=== PATIENT | male | born 1965 | race Caucasian/White ===

== ENCOUNTER → 2016-12-22 | Outpatient (CLI) | payer OTHER ==
[~2016-12-22] MED LIST: ALBUAER19 INH; ASPI81TA21 PO; FURO40TA3 PO; INSU1INJ15 SQ; INSUINJ14 SC; LISI-725 PO; LORA-741 PO; META-38 PO; MULTTAB PO; NRN/300 PO; PRAV20TA PO; WLC625 PO
[2016-12-22 18:17] LABS: BASO % 0.2 %; BASO ABS # 0.02 K/uL (0-0.2); COMPLETE YES; EOS % 1.9 %; HEMATOCRIT 36.2 % (42-52); IG% 0.2 %; LYMPH % 20.8 %; LYMPH ABS # 1.82 K/uL (1.2-3.4); MEAN CELL VOLUME 90.3 fL (80-100); MEAN CORPUSCULAR HEMOGLOBIN 28.4 pg (25-34); MEAN CORPUSCULAR HGB CONC 31.5 g/dl (32-36); MEAN PLATELET VOLUME 9.8 fL (7.4-10.4); MONO % 4.2 %; NEUT % 72.7 %; PLATELET COUNT 252 K/uL (130-400); RED BLOOD COUNT 4.01 M/uL (4.7-6.1); WHITE BLOOD COUNT 8.76 K/uL (4.8-10.8)
[2016-12-22 18:49] LABS: ALT/SGPT 23 U/L (12-78); AST/SGOT 16 U/L (15-37); BLOOD UREA NITROGEN 13 mg/dl (7-18); BUN/CREATININE RATIO 14.4 (10-20); CALCIUM 8.2 mg/dl (8.5-10.1); CARBON DIOXIDE 30 mmol/L (21-32); CHLORIDE 102 mmol/L (98-107); CHOLESTEROL 144 mg/dl (0-200); CREATININE 0.89 mg/dl (0.60-1.40); GLUCOSE 122 mg/dl (70-99); POTASSIUM 3.8 mmol/L (3.5-5.1); SODIUM 139 mmol/L (136-145)
[2016-12-22 18:55] LABS: ALB/GLOB RATIO 0.8 (0.9-2); ALKALINE PHOSPHATASE 85 U/L (45-117); CHOLESTEROL/HDL RATIO 3.5; HDL CHOLESTEROL 41 mg/dl; LDL CHOLESTEROL CALCULATED 87 mg/dl; PROSTATE SPECIFIC ANTIGEN 0.051 ng/ml (0.000-4.000); TRIGLYCERIDES 80 mg/dl (0-150); VERY LOW DENSITY LIPOPROT CALC 16 mg/dl
[2016-12-23 06:32] LABS: ESTIMATED AVERAGE GLUCOSE 203 mg/dl; HA1C FLAG Normal (Normal)
== END | disposition home or self-care (01) ==
LOC: C.LABSPEC 17:48
PROVIDERS: ATTEND Family Medicine
DX: E11.9 Type 2 diabetes mellitus without complications (principal); I10 Essential (primary) hypertension; E78.2 Mixed hyperlipidemia; Z12.5 Encounter for screening for malignant neoplasm of prostate

== ENCOUNTER → 2017-06-23 | Outpatient (CLI) | payer OTHER ==
[~2017-06-23] MED LIST changes: +ASPI-319 PO; -ASPI81TA21 PO; +BCTROWC EXT; +CEPH500C2 PO; +DICL1GEL34 TOP; +DOXY-300 PO; +INSDGI SQ; +MORP1TAB12 PO; +MORP1TAB14 PO; +NVLG SQ; +OXYC-57 PO; +SULF800T23 PO; +VLT50 PO
[2017-06-23 18:43] LABS: BASO % 0.1 %; BASO ABS # 0.01 K/uL (0-0.2); EOS % 2.4 %; EOS ABS # 0.21 K/uL (0-0.5); HEMATOCRIT 37.8 % (42-52); HEMOGLOBIN 12.2 g/dL (14.0-18.0); IG# 0.02 K/uL (0.00-0.02); LYMPH % 25.6 %; LYMPH ABS # 2.26 K/uL (1.2-3.4); MEAN CELL VOLUME 89.6 fL (80-100); MEAN CORPUSCULAR HEMOGLOBIN 28.9 pg (25-34); MEAN CORPUSCULAR HGB CONC 32.3 g/dl (32-36); MEAN PLATELET VOLUME 9.5 fL (7.4-10.4); MONO % 4.8 %; MONO ABS # 0.42 K/uL (0.11-0.59); NEUT % 66.9 %; PLATELET COUNT 253 K/uL (130-400); RED CELL DISTRIBUTION WIDTH CV 13.1 % (11.5-14.5); RED CELL DISTRIBUTION WIDTH SD 42.1 fL (36.4-46.3); WHITE BLOOD COUNT 8.82 K/uL (4.8-10.8)
[2017-06-24 08:07] LABS: HEMOGLOBIN A1C 7.5 % (4.5-5.6)
== END | disposition home or self-care (01) ==
LOC: C.LABSPEC 12:55
PROVIDERS: ATTEND Family Medicine
DX: E11.9 Type 2 diabetes mellitus without complications (principal)

== ENCOUNTER → 2017-08-17 | Outpatient (CLI) | payer OTHER ==
[~2017-08-17] MED LIST changes: -ASPI-319 PO; +ASPI81TA21 PO; -BCTROWC EXT; -CEPH500C2 PO; -DICL1GEL34 TOP; -DOXY-300 PO; -INSDGI SQ; -MORP1TAB12 PO; -MORP1TAB14 PO; -NVLG SQ; -OXYC-57 PO; -SULF800T23 PO; -VLT50 PO
[2017-08-17 19:08] LABS: ALBUMIN 3.2 gm/dl (3.4-5.0); ALT/SGPT 35 U/L (12-78); AST/SGOT 16 U/L (15-37); BLOOD UREA NITROGEN 15 mg/dl (7-18); CALCIUM 8.7 mg/dl (8.5-10.1); CARBON DIOXIDE 31 mmol/L (21-32); CREATININE 0.83 mg/dl (0.60-1.40); GLUCOSE 120 mg/dl (70-99); POTASSIUM 3.7 mmol/L (3.5-5.1); SODIUM 134 mmol/L (136-145)
[2017-08-17 19:11] LABS: ALKALINE PHOSPHATASE 92 U/L (45-117); CHOLESTEROL 150 mg/dl (0-200); LDL CHOLESTEROL CALCULATED 85 mg/dl; TOTAL PROTEIN 7.8 gm/dl (6.4-8.2)
== END | disposition home or self-care (01) ==
LOC: C.LABSPEC 18:30
PROVIDERS: ATTEND Family Medicine
DX: E11.9 Type 2 diabetes mellitus without complications (principal)

== ENCOUNTER 2017-09-14 12:46 | Emergency (ER) | payer OTHER ==
[~2017-09-14] VITALS: Ht 170.2 cm; Wt 147.5 kg
[2017-09-14 13:06] VITALS: TEMP 36.7; Ht 170.2 cm; Wt 147.5 kg
--- NOTE | 2017-09-14 13:31 | EMERGENCY ROOM VISIT NOTE ---
History Report prepared by Chauncey: Antonia Blackburn Under the Supervision of: Rahel BustillosO. First contact with patient: 13:16 Chief Complaint: INFECTION Stated Complaint: SKIN REDNESS AND PEELING OFF OF LEFT SUAREZ Nursing Triage Summary: pt has skin tear to llleg denies injury pt reports being diabetic and awaking to notice this am History of Present Illness The patient is a 51 year old male who presents to the Emergency Room with complaints of persistent open blisters on left leg since this morning. He reports getting up to change pants and he noticed the blisters on his left leg. He was seen by his PCP and was prescribed antibiotics. He states his feet are normal. He denies any leg pain. He notes that he has been feeling hot and cold. He denies any nausea or vomiting. He denies any shortness of breath, though notes congestion. He has a history of cellulitis in his legs. He denies any history of blood clots. Source of History: patient Onset: since this morning Position: leg (left) Quality: other (open blisters) Timing: other (persistent) Associated Symptoms: No SOB, No nausea, No vomiting Note: He notes congestion. He notes feeling hot and cold. He denies any leg pain. Review of Systems See HPI for pertinent positives & negatives. A total of 10 systems reviewed and were otherwise negative. Past Medical & Surgical Medical Problems: (1) Diabetes (2) Diabetic ulcer of left foot (3) Fall at home (4) Injury of left ankle and foot Family History Diabetes mellitus Social History Smoking Status: Never Smoker Smokeless Tobacco Use: No Alcohol Use: none Drug Use: none Marital Status: Housing Status: lives with family Occupation Status: disabled Current/Historical Medications Scheduled Aspirin Enteric Coated (Ecotrin Or Generic), 81 MG PO QAM Cephalexin Monohydrate (Keflex), 500 MG PO QID Furosemide (Lasix), 40 MG PO DAILY Gabapentin (Neurontin), 900 MG PO TID Insulin Aspart (Novolog), UNITS SQ SLIDING SCALE Insulin Glargine (Lantus), 76 UNITS SQ QPM Lisinopril (Zestril), 20 MG PO DAILY Lorazepam (Ativan), 0.5 MG PO Q6HR PRN Metaxalone (Skelaxin), 800 MG PO TID PRN Multivitamins/Minerals (Mvi With Minerals), 1 TAB PO QPM Mupirocin (Bactroban 2% Oint), 1 APPLN EXT BID Pravastatin Sodium (Pravachol), 40 MG PO DAILY Sulfa/Trimethoprim (Bactrim Ds 800MG/160MG), 1 TAB PO BID Scheduled PRN Diclofenac Sod (Diclofenac Sodium Dr), 50 MG PO QID PRN for Pain Diclofenac Sodium (Topical) (Diclofenac Sodium), 2 GM TOP QID PRN for Pain Allergies Coded Allergies: Atorvastatin (Verified Allergy, Mild, UNKNOWN, 09/14/17) Simvastatin (Verified Allergy, Mild, UNKNOWN, 09/14/17) Physical Exam Vital Signs Date Time Temp Pulse Resp B/P (MAP) Pulse Ox O2 Delivery O2 Flow Rate FiO2 09/14/17 16:40 75 16 106/51 94 09/14/17 15:18 79 22 106/51 94 Nasal Cannula 1.0 09/14/17 13:41 96 Nasal Cannula 2.0 09/14/17 13:40 96 Nasal Cannula 2.0 09/14/17 13:24 90 09/14/17 13:06 36.7 98 20 153/73 91 Room Air Physical Exam GENERAL: Patient is awake, alert, and in no acute distress. Patient is resting comfortably and showing no signs of anxiety. EYES: The conjunctivae are clear. The pupils are round and reactive. EARS, NOSE, MOUTH AND THROAT: The nose is without any evidence of any deformity. Mucous membranes are moist tongue is midline NECK: The neck is nontender and supple. RESPIRATORY: Lung sounds diminished throughout. Scattered rhonchi, no tachypnea or conversational dyspnea noted. CARDIOVASCULAR: Regular rate and rhythm noted there no murmurs rubs or gallops normal S1 normal S2 GASTROINTESTINAL: The abdomen is soft. Bowel sounds are present in all quadrants. Abdomen is nontender MUSCULOSKELETAL/EXTREMITIES: There is no evidence of gross deformity full range of motion is noted in the hips and shoulders SKIN: Pedal edema bilaterally, left greater than right, significant erythema to anterior left lower extremity with skin break down noted, no lymphangitic streaking appreciated. NEUROLOGIC: Patient is awake alert and oriented x3. Medical Decision & Procedures ER Provider Diagnostic Interpretation: Radiology results as stated below per my review and radiologist interpretation: SINGLE VIEW CHEST CLINICAL HISTORY: Dyspnea. FINDINGS: An AP, portable, upright chest radiograph is compared to study dated 07/30/2012. The examination is degraded by portable technique, large body habitus, and apical lordotic positioning. The heart is top normal for projection. The lungs and pleural spaces are clear. No pneumothorax is seen. The bony thorax is grossly intact. IMPRESSION: No acute cardiopulmonary abnormality. Electronically signed by: Gregg Javier M.D. 09/14/2017 2:36 PM Dictated Date/Time: 09/14/2017 2:36 PM L VENOUS DOPP LOWER EXT UNILAT HISTORY: 51 years-old Male swelling acute left lower cavity swelling COMPARISON: None available TECHNIQUE: Multiple real-time sonographic images of the left lower extremity deep venous structures were obtained assessing grayscale appearance, color and spectral flow FINDINGS: There is normal flow, phasicity, compressibility and augmentation of the left lower extremity deep venous structures. IMPRESSION: No sonographic evidence of deep venous thrombosis. The above report was generated using voice recognition software. It may contain grammatical, syntax or spelling errors. Electronically signed by: See Barnes M.D. 09/14/2017 2:53 PM Dictated Date/Time: 09/14/2017 2:52 PM Laboratory Results 09/14/17 13:45 Red Blood Count 3.93, Mean Corpuscular Volume 89.6, Mean Corpuscular Hemoglobin 28.5, Mean Corpuscular Hemoglobin Concent 31.8, Mean Platelet Volume 9.0, Neutrophils (%) (Auto) 69.8, Lymphocytes (%) (Auto) 23.3, Monocytes (%) (Auto) 2.9, Eosinophils (%) (Auto) 3.6, Basophils (%) (Auto) 0.2, Neutrophils # (Auto) 5.84, Lymphocytes # (Auto) 1.95, Monocytes # (Auto) 0.24, Eosinophils # (Auto) 0.30, Basophils # (Auto) 0.02 09/14/17 13:45 Test 09/14/17 13:45 White Blood Count 8.37 K/uL (4.8-10.8) Red Blood Count 3.93 M/uL (4.7-6.1) Hemoglobin 11.2 g/dL (14.0-18.0) Hematocrit 35.2 % (42-52) Mean Corpuscular Volume 89.6 fL (80-100) Mean Corpuscular Hemoglobin 28.5 pg (25-34) Mean Corpuscular Hemoglobin Concent 31.8 g/dl (32-36) Platelet Count 234 K/uL (130-400) Mean Platelet Volume 9.0 fL (7.4-10.4) Neutrophils (%) (Auto) 69.8 % Lymphocytes (%) (Auto) 23.3 % Monocytes (%) (Auto) 2.9 % Eosinophils (%) (Auto) 3.6 % Basophils (%) (Auto) 0.2 % Neutrophils # (Auto) 5.84 K/uL (1.4-6.5) Lymphocytes # (Auto) 1.95 K/uL (1.2-3.4) Monocytes # (Auto) 0.24 K/uL (0.11-0.59) Eosinophils # (Auto) 0.30 K/uL (0-0.5) Basophils # (Auto) 0.02 K/uL (0-0.2) RDW Standard Deviation 45.2 fL (36.4-46.3) RDW Coefficient of Variation 13.8 % (11.5-14.5) Immature Granulocyte % (Auto) 0.2 % Immature Granulocyte # (Auto) 0.02 K/uL (0.00-0.02) Erythrocyte Sedimentation Rate 76 mm/hr (0-14) Prothrombin Time 10.2 SECONDS (9.0-12.0) Prothromb Time International Ratio 1.0 (0.9-1.1) Activated Partial Thromboplast Time 27.7 SECONDS (21.0-31.0) Partial Thromboplastin Ratio 1.1 Anion Gap 4.0 mmol/L (3-11) Est Creatinine Clear Calc Drug Dose 147.1 ml/min Estimated GFR () 117.8 Estimated GFR (Non- 101.7 BUN/Creatinine Ratio 20.1 (10-20) Calcium Level 8.9 mg/dl (8.5-10.1) Total Bilirubin 0.2 mg/dl (0.2-1) Aspartate Amino Transf (AST/SGOT) 11 U/L (15-37) Alanine Aminotransferase (ALT/SGPT) 21 U/L (12-78) Alkaline Phosphatase 92 U/L (45-117) Troponin I < 0.015 ng/ml (0-0.045) C-Reactive Protein 5.61 mg/dl (0-0.29) Pro-B-Type Natriuretic Peptide 255 pg/ml (0-900) Total Protein 7.2 gm/dl (6.4-8.2) Albumin 2.9 gm/dl (3.4-5.0) Globulin 4.3 gm/dl (2.5-4.0) Albumin/Globulin Ratio 0.7 (0.9-2) Laboratory results per my review. Medications Administered Medications (Trade) Dose Ordered Sig/Mandi Route Start Time Stop Time Status Last Admin Dose Admin Ceftriaxone Sodium (Rocephin Inj) 1 gm NOW STAT IV 09/14/17 15:12 09/14/17 15:13 DC 09/14/17 15:18 1 GM ECG Per My Interpretation Indication: SOB/dyspnea Rate (beats per minute): 87 Rhythm: normal sinus Findings: no acute ischemic change, no ectopy Change: no significant change (when compared 06/09/2017) ED Course 1326: The patient was evaluated in room B9. A complete history and physical examination were performed. 1512: Ordered Rocephin 1 gm IV 1607: I reassessed the patient at this time. He is resting comfortably. I discussed the results and treatment plan with the patient. I answered all pertaining questions that he had. He expressed understanding and verbalized agreement. The patient will be discharged home. Medical Decision Prior records reviewed and summarized as above. Triage Nursing notes reviewed. The patient's history was concerning for swelling and redness of the skin. Differential diagnosis: Etiologies such as cellulitis, abscess, MRSA infection, DVT, necrotizing fasciitis, dermatitis, drug eruption, as well as others were entertained.. The patient is a 51-year-old male who has a history of diabetes who presented for left leg swelling and redness. The patient had an area of a blister that had ruptured. This appears to be secondarily infected and has cellulitis. He has had staph infections in the past. He was treated with IV Rocephin. I discussed the patient's laboratory and radiographic studies with him. He had a triple antibiotic dressing placed. He was started on Keflex and Bactrim. He was encouraged to continue triple antibiotic dressings twice a day and follow- up with his doctor within the next few days. Otherwise he was encouraged to return the emergency department immediately if symptoms change worsen or the need arises. Medication Reconcilliation Current Medication List: was personally reviewed by me Blood Pressure Screening Patient's blood pressure: Elevated blood pressure Blood pressure disposition: Elevated BP felt to be situational Impression Primary Impression: Left leg cellulitis Scribe Attestation The scribe's documentation has been prepared under my direction and personally reviewed by me in its entirety. I confirm that the note above accurately reflects all work, treatment, procedures, and medical decision making performed by me. Departure Information Dispostion Home / Self-Care Prescriptions Cephalexin Monohydrate (KEFLEX) 500 Mg Cap 500 MG PO QID, #28 CAP Prov: Espinoza Lopez, DO 09/14/17 Mupirocin (Bactroban 2% Oint) 66 Appln/22 Gm Oint 1 APPLN EXT BID, #60 GM Prov: Espinoza Lopez, DO 09/14/17 Sulfa/Trimethoprim (Bactrim Ds 800MG/160MG) Tab 1 TAB PO BID, #14 TAB Prov: Espinoza Lopez, DO 09/14/17 Referrals Jose Wan M.D.[facility]) (PCP) Forms HOME CARE DOCUMENTATION FORM, IMPORTANT VISIT INFORMATION, WORK / SCHOOL INSTRUCTIONS Patient Instructions Cellulitis Dc, My [facility] Additional Instructions Continue all medications as prescribed. Continue to place triple antibiotic ointment to the leg 2 times a day. Follow-up with your primary care physician within the next few days for reevaluation. Return the emergency department immediately if symptoms change worsening the need arises.
[2017-09-14 13:41] VITALS: O2SAT 96
[2017-09-14 14:05] LABS: PTT PATIENT 27.7 SECONDS (21.0-31.0)
[2017-09-14 14:06] LABS: BASO % 0.2 %; BASO ABS # 0.02 K/uL (0-0.2); EOS % 3.6 %; HEMATOCRIT 35.2 % (42-52); HEMOGLOBIN 11.2 g/dL (14.0-18.0); IG# 0.02 K/uL (0.00-0.02); LYMPH % 23.3 %; LYMPH ABS # 1.95 K/uL (1.2-3.4); MEAN CELL VOLUME 89.6 fL (80-100); MEAN CORPUSCULAR HEMOGLOBIN 28.5 pg (25-34); MEAN CORPUSCULAR HGB CONC 31.8 g/dl (32-36); MONO % 2.9 %; MONO ABS # 0.24 K/uL (0.11-0.59); NEUT % 69.8 %; NEUT ABS # 5.84 K/uL (1.4-6.5); PLATELET COUNT 234 K/uL (130-400); RED CELL DISTRIBUTION WIDTH CV 13.8 % (11.5-14.5); RED CELL DISTRIBUTION WIDTH SD 45.2 fL (36.4-46.3); WHITE BLOOD COUNT 8.37 K/uL (4.8-10.8)
[2017-09-14] MEDS ORDERED: INSDGI SQ (14:16)
[2017-09-14] MEDS ORDERED: NVLG SQ (14:16)
[2017-09-14] MEDS ORDERED: VLT50 PO (14:18)
[2017-09-14] MEDS ORDERED: DICL1GEL34 TOP (14:18)
[2017-09-14 14:33] LABS: BLOOD UREA NITROGEN 16 mg/dl (7-18); CARBON DIOXIDE 34 mmol/L (21-32); CREATININE 0.82 mg/dl (0.60-1.40); GLUCOSE 129 mg/dl (70-99); POTASSIUM 3.8 mmol/L (3.5-5.1); SODIUM 138 mmol/L (136-145)
[2017-09-14 14:34] LABS: ALBUMIN 2.9 gm/dl (3.4-5.0); ALKALINE PHOSPHATASE 92 U/L (45-117); ALT/SGPT 21 U/L (12-78); AST/SGOT 11 U/L (15-37); CALCIUM 8.9 mg/dl (8.5-10.1); TOTAL PROTEIN 7.2 gm/dl (6.4-8.2)
--- NOTE | 2017-09-14 14:37 | DIAGNOSTIC IMAGING REPORT ---
SINGLE VIEW CHEST CLINICAL HISTORY: Dyspnea. FINDINGS: An AP, portable, upright chest radiograph is compared to study dated 07/30/2012. The examination is degraded by portable technique, large body habitus, and apical lordotic positioning. The heart is top normal for projection. The lungs and pleural spaces are clear. No pneumothorax is seen. The bony thorax is grossly intact. IMPRESSION: No acute cardiopulmonary abnormality. Electronically signed by: Gregg Javier M.D. 09/14/2017 2:36 PM Dictated Date/Time: 09/14/2017 2:36 PM
--- NOTE | 2017-09-14 14:55 | DIAGNOSTIC IMAGING REPORT ---
L VENOUS DOPP LOWER EXT UNILAT HISTORY: 51 years-old Male swelling acute left lower cavity swelling COMPARISON: None available TECHNIQUE: Multiple real-time sonographic images of the left lower extremity deep venous structures were obtained assessing grayscale appearance, color and spectral flow FINDINGS: There is normal flow, phasicity, compressibility and augmentation of the left lower extremity deep venous structures. IMPRESSION: No sonographic evidence of deep venous thrombosis. The above report was generated using voice recognition software. It may contain grammatical, syntax or spelling errors. Electronically signed by: See Barnes M.D. 09/14/2017 2:53 PM Dictated Date/Time: 09/14/2017 2:52 PM
[2017-09-14] MEDS ORDERED: CEFTRIAXONE SOD INJ 1 GM ADDVIAL IV STA (15:12)
[2017-09-14] MEDS ORDERED: SULF800T23 PO (16:14)
[2017-09-14] MEDS ORDERED: CEPH500C2 PO (16:14)
[2017-09-14] MEDS ORDERED: BCTROWC EXT (16:14)
[2017-09-14 16:40] VITALS: BP 106/51; PULSE 75; O2SAT 94
== END 2017-09-14 16:41 | disposition home or self-care (01) ==
LOC: C.EDB 12:48
DX: L03.116 Cellulitis of left lower limb (principal); E11.9 Type 2 diabetes mellitus without complications; Z83.3 Family history of diabetes mellitus; Z79.82 Long term (current) use of aspirin; Z79.4 Long term (current) use of insulin; Z79.899 Other long term (current) drug therapy; Z88.8 Allergy status to other drugs, medicaments and biological substances

== ENCOUNTER 2017-09-21 14:50 | Inpatient (IN) | payer OTHER ==
[~2017-09-21] VITALS: Ht 172.7 cm; Wt 182.0 kg
[~2017-09-21 14:50] MED LIST changes: -ALBUAER19 INH; +BCTROWC EXT; +CEPH500C2 PO; +DICL1GEL34 TOP; +INSDGI SQ; -INSU1INJ15 SQ; -INSUINJ14 SC; +NVLG SQ; +SULF800T23 PO; +VLT50 PO; -WLC625 PO
[2017-09-21] MEDS ORDERED: SODIUM CHLORIDE 0.9% 1000ML 1,000 ML IV STA ×2 (15:08→16:22)
[2017-09-21] MEDS ORDERED: OPTIRAY 320 IV PRN (15:15)
--- NOTE | 2017-09-21 15:31 | DIAGNOSTIC IMAGING REPORT ---
CHEST ONE VIEW PORTABLE HISTORY: 51 years-old Male cough hypoxia acute cough COMPARISON: Chest radiograph 09/14/2017 TECHNIQUE: Portable AP view of the chest FINDINGS: Cardiac silhouette is mildly enlarged, unchanged. No pneumothorax, overt pulmonary edema or pleural effusion. Hazy bibasilar opacities are noted. Lungs are hypoinflated with bronchovascular crowding. Degenerative changes are seen within the shoulders and spine. IMPRESSION: 1. Cardiomegaly with hypoinflation and bronchovascular crowding. 2. Hazy bibasilar opacities suggest atelectasis with pneumonitis thought to be less likely. The above report was generated using voice recognition software. It may contain grammatical, syntax or spelling errors. Electronically signed by: See Barnes M.D. 09/21/2017 3:30 PM Dictated Date/Time: 09/21/2017 3:27 PM
[2017-09-21 15:58] LABS: BASO % 0.1 %; BASO ABS # 0.01 K/uL (0-0.2); EOS % 1.7 %; EOS ABS # 0.16 K/uL (0-0.5); HEMOGLOBIN 10.5 g/dL (14.0-18.0); IG# 0.04 K/uL (0.00-0.02); LYMPH % 19.7 %; LYMPH ABS # 1.85 K/uL (1.2-3.4); MEAN CELL VOLUME 92.1 fL (80-100); MEAN CORPUSCULAR HEMOGLOBIN 28.5 pg (25-34); MEAN CORPUSCULAR HGB CONC 30.9 g/dl (32-36); MEAN PLATELET VOLUME 9.2 fL (7.4-10.4); MONO % 3.3 %; MONO ABS # 0.31 K/uL (0.11-0.59); NEUT % 74.8 %; NEUT ABS # 7.04 K/uL (1.4-6.5); PLATELET COUNT 243 K/uL (130-400); RED CELL DISTRIBUTION WIDTH CV 14.7 % (11.5-14.5); RED CELL DISTRIBUTION WIDTH SD 49.2 fL (36.4-46.3); WHITE BLOOD COUNT 9.41 K/uL (4.8-10.8)
[2017-09-21 16:14] LABS: ALBUMIN 3.1 gm/dl (3.4-5.0); ALT/SGPT 23 U/L (12-78); BLOOD UREA NITROGEN 62 mg/dl (7-18); CALCIUM 8.2 mg/dl (8.5-10.1); CARBON DIOXIDE 31 mmol/L (21-32); GLUCOSE 86 mg/dl (70-99); LIPASE 46 U/L (73-393); POTASSIUM 4.5 mmol/L (3.5-5.1); SODIUM 132 mmol/L (136-145)
[2017-09-21 16:19] LABS: ALKALINE PHOSPHATASE 94 U/L (45-117); AST/SGOT 26 U/L (15-37); TOTAL PROTEIN 7.3 gm/dl (6.4-8.2)
[2017-09-21] MEDS ORDERED: CEPH500C2 PO (16:22)
[2017-09-21] MEDS ORDERED: LEVAQUIN 750MG / 150ML D5W IV STA (16:22)
[2017-09-21] MEDS ORDERED: SULF800T23 PO (16:25)
[2017-09-21] MEDS ORDERED: BCTROWC EXT (16:27)
--- NOTE | 2017-09-21 17:39 | DIAGNOSTIC IMAGING REPORT ---
BILATERAL LOWER EXTREMITY VENOUS DOPPLER HISTORY: Elevated d-dimer level with acute bilateral lower extremity pain and swelling +dd and sob COMPARISON STUDY: None. FINDINGS: Study is limited secondary to patient body habitus. Several of the deep venous structures are not well seen. There is normal compressibility, flow, and augmentation within the bilateral lower extremity deep venous systems. IMPRESSION: No sonographic evidence of deep venous thrombosis within the right or left lower extremity. Electronically signed by: See Barnes M.D. 09/21/2017 5:38 PM Dictated Date/Time: 09/21/2017 5:37 PM
--- NOTE | 2017-09-21 18:45 | EMERGENCY ROOM VISIT NOTE ---
History Report prepared by [place]: Maki Adler Under the Supervision of: Dr. Hans Doran D.O. First contact with patient: 15:00 Chief Complaint: SHORTNESS OF BREATH Stated Complaint: BREATHING, SHAKING, UNABLE TO STAY AWAKE History of Present Illness The patient is a 51 year old male who presents to the Emergency Room with complaints of persistent SOB starting yesterday. He notices the SOB especially with walking from room to room. He has had a cough which is bringing up phlegm. His hands have been twitching today. He denies any rhinorrhea, chest pain, abdominal pain, nausea, vomiting, diarrhea, or pain with urination. He does not use oxygen at home. He has a history of diabetes and hypertension. He is currently being treated for cellulitis in his legs. He reports right knee pain for which he is scheduled for an MRI tomorrow. He still has his gallbladder and appendix. Source of History: patient Onset: yesterday Position: other (constitutional) Quality: other (SOB) Timing: other (persistent) Modifying Factors (Worsening): exertion Associated Symptoms: + cough, No chest pain, No nausea, No vomiting, No abdominal pain, No diarrhea, No urinary symptoms Review of Systems See HPI for pertinent positives & negatives. A total of 10 systems reviewed and were otherwise negative. Past Medical & Surgical Medical Problems: (1) Diabetes (2) Diabetic ulcer of left foot (3) Fall at home (4) Injury of left ankle and foot Family History Diabetes mellitus Social History Smoking Status: Never Smoker Alcohol Use: none Drug Use: none Marital Status: Housing Status: lives with family Occupation Status: disabled Current/Historical Medications Scheduled Aspirin Enteric Coated (Ecotrin Or Generic), 81 MG PO QAM Cephalexin Monohydrate (Keflex), 500 MG PO QID Furosemide (Lasix), 40 MG PO DAILY Gabapentin (Neurontin), 900 MG PO TID Insulin Aspart (Novolog), UNITS SQ SLIDING SCALE Insulin Glargine (Lantus), 76 UNITS SQ QPM Lisinopril (Zestril), 20 MG PO DAILY Lorazepam (Ativan), 0.5 MG PO Q6HR PRN Metaxalone (Skelaxin), 800 MG PO TID PRN Multivitamins/Minerals (Mvi With Minerals), 1 TAB PO QPM Mupirocin (Bactroban 2% Oint), 1 APPLN EXT BID Pravastatin Sodium (Pravachol), 40 MG PO DAILY Sulfa/Trimethoprim (Bactrim Ds 800MG/160MG), 1 TAB PO BID Scheduled PRN Diclofenac Sod (Diclofenac Sodium Dr), 50 MG PO QID PRN for Pain Diclofenac Sodium (Topical) (Diclofenac Sodium), 2 GM TOP QID PRN for Pain Allergies Coded Allergies: Atorvastatin (Verified Allergy, Mild, UNKNOWN, 09/14/17) Simvastatin (Verified Allergy, Mild, UNKNOWN, 09/14/17) Physical Exam Vital Signs Date Time Temp Pulse Resp B/P (MAP) Pulse Ox O2 Delivery O2 Flow Rate FiO2 09/21/17 18:08 93 18 115/61 98 Nasal Cannula 2.0 09/21/17 18:07 93 09/21/17 16:46 89 91/46 99 Nasal Cannula 2.0 09/21/17 15:07 98 Nasal Cannula 2.0 09/21/17 15:07 96 Nasal Cannula 2.0 09/21/17 15:06 89 Room Air 09/21/17 14:55 36.3 89 20 131/85 84 Room Air Physical Exam GENERAL: Morbidly obese, disheveled, sitting up in bed, dyspneic with conversation EYE EXAM: normal conjunctiva. OROPHARYNX: no exudate, no erythema, lips, buccal mucosa, and tongue normal and mucous membranes are moist NECK: supple, no nuchal rigidity, no adenopathy, non-tender, unable to appreciate JVD LUNGS: Distant. Clear to auscultation. Normal chest wall mechanics HEART: Distant, no murmurs, S1 normal and S2 normal ABDOMEN: abdomen soft, non-tender, normo-active bowel sounds, no masses, no rebound or guarding. BACK: Back is symmetrical on inspection and there is no deformity, no midline tenderness, no CVA tenderness. SKIN: no rashes and no bruising UPPER EXTREMITIES: upper extremities are grossly normal. LOWER EXTREMITIES: No pitting edema. Calves equal bilaterally with erythema around the ankles. NEURO EXAM: Normal sensorium, cranial nerves II-XII grossly intact, normal speech, no gross weakness of arms, no gross weakness of legs. Medical Decision & Procedures ER Provider Diagnostic Interpretation: Radiology results as stated below per my review and the radiologist's interpretation: CHEST ONE VIEW PORTABLE HISTORY: 51 years-old Male cough hypoxia acute cough COMPARISON: Chest radiograph 09/14/2017 TECHNIQUE: Portable AP view of the chest FINDINGS: Cardiac silhouette is mildly enlarged, unchanged. No pneumothorax, overt pulmonary edema or pleural effusion. Hazy bibasilar opacities are noted. Lungs are hypoinflated with bronchovascular crowding. Degenerative changes are seen within the shoulders and spine. IMPRESSION: 1. Cardiomegaly with hypoinflation and bronchovascular crowding. 2. Hazy bibasilar opacities suggest atelectasis with pneumonitis thought to be less likely. The above report was generated using voice recognition software. It may contain grammatical, syntax or spelling errors. Electronically signed by: See Barnes M.D. 09/21/2017 3:30 PM Dictated Date/Time: 09/21/2017 3:27 PM Laboratory Results 09/21/17 15:35 Red Blood Count 3.69, Mean Corpuscular Volume 92.1, Mean Corpuscular Hemoglobin 28.5, Mean Corpuscular Hemoglobin Concent 30.9, Mean Platelet Volume 9.2, Neutrophils (%) (Auto) 74.8, Lymphocytes (%) (Auto) 19.7, Monocytes (%) (Auto) 3.3, Eosinophils (%) (Auto) 1.7, Basophils (%) (Auto) 0.1, Neutrophils # (Auto) 7.04, Lymphocytes # (Auto) 1.85, Monocytes # (Auto) 0.31, Eosinophils # (Auto) 0.16, Basophils # (Auto) 0.01 09/21/17 15:35 Test 09/21/17 15:35 White Blood Count 9.41 K/uL (4.8-10.8) Red Blood Count 3.69 M/uL (4.7-6.1) Hemoglobin 10.5 g/dL (14.0-18.0) Hematocrit 34.0 % (42-52) Mean Corpuscular Volume 92.1 fL (80-100) Mean Corpuscular Hemoglobin 28.5 pg (25-34) Mean Corpuscular Hemoglobin Concent 30.9 g/dl (32-36) Platelet Count 243 K/uL (130-400) Mean Platelet Volume 9.2 fL (7.4-10.4) Neutrophils (%) (Auto) 74.8 % Lymphocytes (%) (Auto) 19.7 % Monocytes (%) (Auto) 3.3 % Eosinophils (%) (Auto) 1.7 % Basophils (%) (Auto) 0.1 % Neutrophils # (Auto) 7.04 K/uL (1.4-6.5) Lymphocytes # (Auto) 1.85 K/uL (1.2-3.4) Monocytes # (Auto) 0.31 K/uL (0.11-0.59) Eosinophils # (Auto) 0.16 K/uL (0-0.5) Basophils # (Auto) 0.01 K/uL (0-0.2) RDW Standard Deviation 49.2 fL (36.4-46.3) RDW Coefficient of Variation 14.7 % (11.5-14.5) Immature Granulocyte % (Auto) 0.4 % Immature Granulocyte # (Auto) 0.04 K/uL (0.00-0.02) D-Dimer 860 ug/L FEU (0-500) Anion Gap 6.0 mmol/L (3-11) Estimated GFR () 36.5 Estimated GFR (Non- 31.5 BUN/Creatinine Ratio 26.7 (10-20) Calcium Level 8.2 mg/dl (8.5-10.1) Total Bilirubin 0.2 mg/dl (0.2-1) Direct Bilirubin < 0.1 mg/dl (0-0.2) Aspartate Amino Transf (AST/SGOT) 26 U/L (15-37) Alanine Aminotransferase (ALT/SGPT) 23 U/L (12-78) Alkaline Phosphatase 94 U/L (45-117) Troponin I 0.028 ng/ml (0-0.045) Total Protein 7.3 gm/dl (6.4-8.2) Albumin 3.1 gm/dl (3.4-5.0) Lipase 46 U/L (73-393) Laboratory results per my review. Medications Administered Medications (Trade) Dose Ordered Sig/Mandi Route Start Time Stop Time Status Last Admin Dose Admin Sodium Chloride 1,000 ml @ 999 mls/hr Q1H1M STAT IV 09/21/17 15:08 09/21/17 16:08 DC 09/21/17 15:40 999 MLS/HR Sodium Chloride 1,000 ml @ 999 mls/hr Q1H1M STAT IV 09/21/17 16:22 09/21/17 17:22 DC 09/21/17 16:28 999 MLS/HR Levofloxacin (Levaquin / D5W) 750 mg NOW STAT IV 09/21/17 16:22 18 16:24 DC 09/21/17 16:28 750 MG ECG Per My Interpretation Indication: SOB/dyspnea Rate (beats per minute): 84 Rhythm: sinus rhythm Findings: no ectopy, other (normal axis) ED Course ED COURSE: Vital signs were reviewed and showed hypoxia. The patients medical record was reviewed The above diagnostic studies were performed and reviewed. ED treatments and interventions as stated above. 1504: The patient was evaluated in room B11A. A complete history and physical examination was performed. 1508: NSS 1000 ml @ 999 mls/hr IV. 1622: Levofloxacin 750 mg IV, NSS 1000 ml @ 999 mls/hr IV. 1626: Upon reevaluation, the patient is stable. I discussed my findings with the patient and he understands and agrees with the treatment plan. Based on the patients age, coexisting illnesses, exam and lab findings the decision to treat as an inpatient was made. The patient remained stable while under my care. The patient will be evaluated for further management. 1630: I reviewed the patient's case with Dr. Grewal, [facility] hospitalist. He will evaluate the patient for further management. Medical Decision Differential diagnoses includes but is not limited to pneumonia, bronchitis, COPD/Asthma exacerbation, pneumothorax, pulmonary embolism, congestive heart failure, acute coronary syndrome Patient is a 51-year-old male who presents the ER for shortness of breath with exertion. He also admits to a productive cough as well. Upon presentation patient is hypoxic at 84% on room air. He is placed on 2 L nasal cannula. Labs show no significant leukocytosis. Mild anemia. Creatinine slightly elevated at 2.3 off of the baseline of 0.9. Troponin was negative. Bilirubin and LFTs were normal. Lipase is normal. D-dimer was elevated. With elevation in creatinine unable to perform CT PE. Consequently duplex of lower extremities was performed and negative. With elevated d-dimer and hypoxia will likely need VQ in a.m. but will defer to hospitalist. Patient was covered with IV antibiotics. They are updated at bedside and was admitted to internal medicine for further workup of his hypoxia and likely pneumonia along with his acute kidney injury. Medication Reconcilliation Current Medication List: was personally reviewed by me Blood Pressure Screening Patient's blood pressure: Normal blood pressure Blood pressure disposition: Did not require urgent referral Consults Time Called: 1623 Consulting Physician: Dr. Grewal, [facility] hospitalist Returned Call: 1630 I reviewed the patient's case with him. He will evaluate the patient for further management. Impression Primary Impression: Pneumonia Additional Impressions: Hypoxia KIRSTEN (acute kidney injury) Scribe Attestation The scribe's documentation has been prepared under my direction and personally reviewed by me in its entirety. I confirm that the note above accurately reflects all work, treatment, procedures, and medical decision making performed by me. Departure Information Dispostion Being Evaluated By Hospitalist Referrals Jose Wan M.D.) (PCP) Patient Instructions [facility] Problem Qualifiers Primary Impression: Pneumonia Pneumonia type: due to unspecified organism Laterality: unspecified laterality Lung location: unspecified part of lung Qualified Codes: J18.9 - Pneumonia, unspecified organism
--- NOTE | 2017-09-21 19:32 | History and Physical ---
History & Physical Date & Time of Service: Sep 21, 2017 at 18:25 Chief Complaint: SOB, fatigue, shaking and sleepiness Primary Care Physician: Jose Wan M.D. ([place]) History of Present Illness Source: patient, family Mr. 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 Patient states that it is difficult for him to catch his breath after walking short distances. He reports an acute worsening of this shortness of breath and decreased exercise tolerance as well as muscle twitching and jerking and increased sleepiness over the last 2 days. He also reports pulsatile tinnitus x 2 days. Patient is presently being treated for cellulitis of the LLE with Keflex 500mg po QID and Bactrim DS BID which he started on [id number]. Patient reports that these are the only new medications. He takes daily Diclofenac and Morphine as well. He states that he has been eating and drinking the same amount and denies any change in his urine output. He denies fevers but reports some mild chills. States he has a chronic cough which is occasionally productive for white phlegm. 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, ulceration of LLE (2) HTN (3) HLP (4) Morbid obesity (5) Cellulitis LLE (6) Anxiety/Depression Family History Diabetes mellitus Kidney disease Social History Smoking Status: Never Smoker Smokeless Tobacco Use: No Alcohol Use: none Drug Use: none Marital Status: Housing status: lives with family Occupational Status: disabled Immunizations History of Influenza Vaccine: Unknown Influenza Vaccine Date: Apr 01, 2012 History of Tetanus Vaccine?: Unknown History of Pneumococcal: Unknown Pneumococcal Date: Jun 01, 2009 History of Hepatitis B Vaccine: Unknown Allergies Coded Allergies: Atorvastatin (Verified Allergy, Mild, UNKNOWN, 09/14/17) Simvastatin (Verified Allergy, Mild, UNKNOWN, 09/14/17) Home Medications Scheduled Aspirin Enteric Coated (Ecotrin Or Generic), 81 MG PO QAM Cephalexin Monohydrate (Keflex), 500 MG PO QID Furosemide (Lasix), 40 MG PO DAILY Gabapentin (Neurontin), 900 MG PO TID Insulin Aspart (Novolog), UNITS SQ SLIDING SCALE Insulin Glargine (Lantus), 76 UNITS SQ QPM Lisinopril (Zestril), 20 MG PO DAILY Lorazepam (Ativan), 0.5 MG PO Q6HR PRN Metaxalone (Skelaxin), 800 MG PO TID PRN Multivitamins/Minerals (Mvi With Minerals), 1 TAB PO QPM Mupirocin (Bactroban 2% Oint), 1 APPLN EXT BID Pravastatin Sodium (Pravachol), 40 MG PO DAILY Sulfa/Trimethoprim (Bactrim Ds 800MG/160MG), 1 TAB PO BID Scheduled PRN Diclofenac Sod (Diclofenac Sodium Dr), 50 MG PO QID PRN for Pain Diclofenac Sodium (Topical) (Diclofenac Sodium), 2 GM TOP QID PRN for Pain Review of Systems Constitutional: + chills, + weakness, + fatigue, No fever, No sweats, No weight loss Eyes: No worsening of vision, No eye pain, No discharge, No diplopia ENT: No hearing loss, No sore throat, No trouble swallowing Respiratory: + cough, + sputum, + shortness of breath, + dyspnea on exertion, No hemoptysis Cardiovascular: No chest pain, No orthopnea, No edema Abdomen: + nausea, No pain, No vomiting, No diarrhea, No constipation Musculoskeletal: No muscle pain, No swelling Genitourinary - Male: No hematuria, No dysuria, No urinary frequency, No urinary urgency, No urinary retention Neurologic: No vertigo Endocrine: + fatigue Integumentary: No rash Physical Exam Vital Signs Date Time Temp Pulse Resp B/P (MAP) Pulse Ox O2 Delivery O2 Flow Rate FiO2 09/21/17 18:08 93 18 115/61 98 Nasal Cannula 2.0 09/21/17 18:07 93 09/21/17 16:46 89 91/46 99 Nasal Cannula 2.0 09/21/17 15:07 98 Nasal Cannula 2.0 09/21/17 15:07 96 Nasal Cannula 2.0 09/21/17 15:06 89 Room Air 09/21/17 14:55 36.3 89 20 131/85 84 Room Air General: morbidly obese C male resting comfortably in bed, NAD, patient is awake, alert and oriented to person, place and time. Skin: warm, dry, cellulitis of LLE, dressing in place, RLE with chronic venous stasis changes HEENT: NC/AT, PERRL, sclera anicteric, conjunctiva without injection, EOMI, cerumen in bilateral ear canals, TM visualized, dry mucus membranes, no oropharyngeal lesions, neck supple, no JVD, no thyromegaly, no cervical LAD Heart: +S1/S2, regular, no m/r/g, exam limited secondary to body habitus Lungs: equal air entry bilaterally, no rales/rhonchi or wheezes Abdomen: obese, normoactive bowel sounds, soft, NT/ND, no masses/organomegaly, no CVA tenderness Extremities: palpable pulses, trace pitting edema in extremities Neuro: nonfocal exam, pt ambulates with unsteady gait, +[facility] Laboratory Results Results Past 24 Hours Test 09/21/17 15:35 Range/Units White Blood Count 9.41 4.8-10.8 K/uL Red Blood Count 3.69 4.7-6.1 M/uL Hemoglobin 10.5 14.0-18.0 g/dL Hematocrit 34.0 42-52 % Mean Corpuscular Volume 92.1 80-100 fL Mean Corpuscular Hemoglobin 28.5 25-34 pg Mean Corpuscular Hemoglobin Concent 30.9 32-36 g/dl Platelet Count 243 130-400 K/uL Mean Platelet Volume 9.2 7.4-10.4 fL Neutrophils (%) (Auto) 74.8 % Lymphocytes (%) (Auto) 19.7 % Monocytes (%) (Auto) 3.3 % Eosinophils (%) (Auto) 1.7 % Basophils (%) (Auto) 0.1 % Neutrophils # (Auto) 7.04 1.4-6.5 K/uL Lymphocytes # (Auto) 1.85 1.2-3.4 K/uL Monocytes # (Auto) 0.31 0.11-0.59 K/uL Eosinophils # (Auto) 0.16 0-0.5 K/uL Basophils # (Auto) 0.01 0-0.2 K/uL RDW Standard Deviation 49.2 36.4-46.3 fL RDW Coefficient of Variation 14.7 11.5-14.5 % Immature Granulocyte % (Auto) 0.4 % Immature Granulocyte # (Auto) 0.04 0.00-0.02 K/uL D-Dimer 860 0-500 ug/L FEU Sodium Level 132 136-145 mmol/L Potassium Level 4.5 3.5-5.1 mmol/L Chloride Level 95 98-107 mmol/L Carbon Dioxide Level 31 21-32 mmol/L Anion Gap 6.0 3-11 mmol/L Blood Urea Nitrogen 62 7-18 mg/dl Creatinine 2.30 0.60-1.40 mg/dl Estimated GFR () 36.5 Estimated GFR (Non- 31.5 BUN/Creatinine Ratio 26.7 10-20 Random Glucose 86 70-99 mg/dl Calcium Level 8.2 8.5-10.1 mg/dl Total Bilirubin 0.2 0.2-1 mg/dl Direct Bilirubin < 0.1 0-0.2 mg/dl Aspartate Amino Transf (AST/SGOT) 26 15-37 U/L Alanine Aminotransferase (ALT/SGPT) 23 12-78 U/L Alkaline Phosphatase 94 45-117 U/L Troponin I 0.028 0-0.045 ng/ml Total Protein 7.3 6.4-8.2 gm/dl Albumin 3.1 3.4-5.0 gm/dl Lipase 46 73-393 U/L Diagnostic Radiology Venous doppler ultrasound: FINDINGS: Study is limited secondary to patient body habitus. Several of the deep venous structures are not well seen. There is normal compressibility, flow, and augmentation within the bilateral lower extremity deep venous systems. IMPRESSION: No sonographic evidence of deep venous thrombosis within the right or left lower extremity. Chest X-Ray FINDINGS: Cardiac silhouette is mildly enlarged, unchanged. No pneumothorax, overt pulmonary edema or pleural effusion. Hazy bibasilar opacities are noted. Lungs are hypoinflated with bronchovascular crowding. Degenerative changes are seen within the shoulders and spine. IMPRESSION: 1. Cardiomegaly with hypoinflation and bronchovascular crowding. 2. Hazy bibasilar opacities suggest atelectasis with pneumonitis thought to be less likely. EKG The study demonstrates NSR at 84bpm, normal axis, TR=240, no ST-T wave changes Normal EKG Impression Assessment and Plan 51 yo C male with multiple medical problems presenting with 2 days of worsening SOB, myoclonic jerking and sleepiness found with acute renal insufficiency with Cr of 2.3 from 0.82 on [id number]. 1. KIRSTEN - as above, patient with normal renal function on prior labs from - BUN=16 and Cr=0.82 at that time. Patient was started on Bactrim and Keflex since then and has continued to take his regular medications to include Diclofenac, Morphine, Lasix, Lisinopril. Concern for medication induced renal failure, specifically Bactrim. Patient presently hemodynamically stable, K=4.5, HCO3=31, making normal urine. -Check UA -Check urine eosinophils -Check renal ultrasound -Nephrology consult -Harp catheter with strict I/Os -Monitor daily labs -Renal dosing to all medication -Avoid nephrotoxic agents - will hold Lasix, Lisinopril -Gentle IVF hydration - patient has received 2L NSS while in ER 2. Diabetes mellitus with neuropathy - Blood sugar presently 86. Patient reports taking Lantus 76units qHS and Novolog SS 15-16 units qAC -Blood sugar checks qHS and qAC -Diabetic diet as tolerated -Continue Lantus - will decrease dosage to 17units BID due to decreased renal function. Coverage with high dose ISS - Hold Lisinopril 3. HTN - patient presently normotensive at 115/61. He reports taking Lisinopril 20mg po daily at home. -Hold Lisinopril for now in setting of KIRSTEN 4. LLE Cellulitis - patient afebrile, hemodynamically stable, SIRS 0/4 -Eugenio LLE cellulitis and monitor daily -Wound care consult -Continue Keflex - will decrease dose to 500mg po BID 5. Hyperlipidemia - stable. Will hold Pravachol for now. 6. Chronic pain - patient reports taking Morphine 130mg po BID as well as Diclofenac 50mg po QID, Diclofenac gel and Tramadol. -Will hold Diclofenac and Tramadol in setting of KIRSTEN. -Decrease home morphine dose by 25% to 100mg po BID 7. F/E/N - Gentle IVF, NSS at 75mL/hr x 1 liter, monitor electrolytes and replete as needed, renal/diabetic diet as tolerated 8. Ppx - Heparin TID for DVT prophylaxis 9. Code - Full per discussion with patient 10. Dispo - Admit to telemetry, anticipate >2 midnight stay Resuscitation Status Full Code VTE Prophylaxis Will order VTE Prophylaxis: Yes Social Service Consult None Apply
[2017-09-21] MEDS ORDERED: LORAZEPAM 0.5 MG TAB PO PRN (19:45)
[2017-09-21] MEDS ORDERED: ALUMINUM/MAGNESIUM/SIMETH (MAALOX MAX) 30 ML UDC PO PRN (19:45)
[2017-09-21] MEDS ORDERED: ACETAMINOPHEN 325 MG TAB PO PRN (19:45)
[2017-09-21 20:52] LABS: BLOOD UREA NITROGEN 62 mg/dl (7-18); CALCIUM 8.1 mg/dl (8.5-10.1); CARBON DIOXIDE 29 mmol/L (21-32); GLUCOSE 72 mg/dl (70-99); POTASSIUM 4.7 mmol/L (3.5-5.1); SODIUM 132 mmol/L (136-145)
[2017-09-21] MEDS: INSULIN ASPART 100 UNITS/ML 3 ML PEN SC SCH (21:00)
[2017-09-21] MEDS ORDERED: PATIENT'S HEIGHT AND/OR WEIGHT NEEDED SCH (21:30)
--- NOTE | 2017-09-21 21:50 | DIAGNOSTIC IMAGING REPORT ---
EXAMINATION: RENAL ULTRASOUND CLINICAL HISTORY: Acute renal injury COMPARISON STUDY: None FINDINGS: The right kidney measures 12.2 cm. The left kidney measures 12.8 cm. There is no evidence of hydronephrosis. There are multiple nonshadowing echogenic foci within the right kidney. Neither ureteral jet was visualized. IMPRESSION : 1. Markedly limited study from a technical standpoint due to morbid obesity 2. No evidence of hydronephrosis 3. Multiple nonspecific echogenic foci within the right kidney demonstrating ringdown artifact. If there is clinical concern over the presence of intrarenal gas, then CT scanning should be obtained in follow-up. Electronically signed by: Anthony Tony M.D. 09/21/2017 9:49 PM Dictated Date/Time: 09/21/2017 9:45 PM
[2017-09-21 22:42] VITALS: BP 111/54; PULSE 88; TEMP 36.9; O2SAT 94
[2017-09-21] MEDS: MORPHINE SULFATE 100 MG PO SCH (22:45)
[2017-09-21] MEDS ORDERED: SODIUM CHLORIDE 0.9% 1000ML 1,000 ML IV SCH (23:00)
[2017-09-21] MEDS: CEPHALEXIN MONOHYDRATE 500 MG CAP PO SCH (23:35)
[2017-09-21] MEDS: INSULIN GLARGINE SOLOSTAR 100 UNITS/ML 3 ML PEN SQ SCH (23:38)
[2017-09-21 23:50] VITALS: BP 99/62; PULSE 93; TEMP 36.8; O2SAT 91
[2017-09-22] VITALS: BP 99/62; PULSE 93; TEMP 36.8; BMI 61.0
[2017-09-22 07:08] LABS: CALCIUM 8.3 mg/dl (8.5-10.1); CREATININE 1.72 mg/dl (0.60-1.40); POTASSIUM 4.9 mmol/L (3.5-5.1)
[2017-09-22 07:21] VITALS: BP 127/62; PULSE 87; TEMP 36.8; O2SAT 95
[2017-09-22 08:00] VITALS: O2SAT 95
[2017-09-22] MEDS: MORPHINE SULFATE 100 MG PO SCH ×2 (08:22→20:09)
[2017-09-22] MEDS: CEPHALEXIN MONOHYDRATE 500 MG CAP PO SCH (08:22)
[2017-09-22] MEDS: GABAPENTIN 300 MG CAP PO SCH (08:22)
[2017-09-22] MEDS: ASPIRIN 81 MG ECTAB PO SCH (08:22)
[2017-09-22] MEDS: INSULIN ASPART 100 UNITS/ML 3 ML PEN SC SCH ×4 (08:58→20:10)
[2017-09-22] MEDS: HEPARIN SOD 5000 UNIT/0.5 ML CARP SQ SCH ×2 (08:59→20:13)
[2017-09-22] MEDS: INSULIN GLARGINE SOLOSTAR 100 UNITS/ML 3 ML PEN SQ SCH ×2 (08:59→20:13)
[2017-09-22 09:43] LABS: HEMATOCRIT 30.4 % (42-52); HEMOGLOBIN 9.4 g/dL (14.0-18.0); MEAN CELL VOLUME 91.3 fL (80-100); MEAN CORPUSCULAR HEMOGLOBIN 28.2 pg (25-34); MEAN CORPUSCULAR HGB CONC 30.9 g/dl (32-36); MEAN PLATELET VOLUME 9.2 fL (7.4-10.4); PLATELET COUNT 243 K/uL (130-400); RED CELL DISTRIBUTION WIDTH CV 14.7 % (11.5-14.5); RED CELL DISTRIBUTION WIDTH SD 48.6 fL (36.4-46.3); WHITE BLOOD COUNT 10.36 K/uL (4.8-10.8)
[2017-09-22] MEDS ORDERED: OXYCODONE/ACETAMINOPHEN 5-325 TAB ONE (10:55)
[2017-09-22] MEDS ORDERED: NURSING VERBAL MED ORDER ONE (11:00)
[2017-09-22] MEDS ORDERED: OXYCODONE/ACETAMINOPHEN 5-325 TAB PO PRN (11:15)
--- NOTE | 2017-09-22 13:43 | Nephrology Consultation ---
Nephrology Consultation Date & Providers Date of Consultation: Sep 22, 2017. Primary Care Provider: Jose Wan M.D. ([place]) Referring Provider: Reason for Consultation KIRSTEN History of Present Illness Mr. Saenz is a 51 year old white male who is seen at the request of Dr. Lorenzo for evaluation of KIRSTEN. Medical records in the EMR were reviewed today and are summarized as follows: Mr. Saenz's medical history is significant for obesity ( BMI 61), HTN, AODM, OA, hypercholesterolemia and chronic LE edema w/ cellulitis. Mr. Saenz reports that he has been taking Diclofenac and MSO4 for management of his arthritis and LE pain. In addition he has been on Bactrim for treatment of his cellulitis and Lisinopril for management of HTN. He has been on Neurontin due to peripheral neuropathy. Over the last 4 weeks Mr. Saenz has experienced ODOM and periodic muscle twitching. He presented to the ED where he was found to have hypoxemia (SaO2 84% on RA), pulmonary edema on CXR and KIRSTEN w/ creatinine 2.3. Nephrology consultation has been requested for evaluation of KIRSTEN. Past Medical/Surgical History Medical: # Obesity (BMI 61) # AODM # Chronic LE edema w/ cellulitis # Hypercholesterolemia # HTN # Anxiety / depression # OA # Peripheral neuropathy Allergies Coded Allergies: Atorvastatin (Verified Allergy, Mild, UNKNOWN, 09/14/17) Simvastatin (Verified Allergy, Mild, UNKNOWN, 09/14/17) Inpatient Medications Current Inpatient Medications Medications (Trade) Dose Ordered Sig/Mandi Route Start Time Stop Time Status Last Admin Dose Admin Ioversol (Optiray 320) 100 ml UD PRN IV 09/21/17 15:15 09/25/17 15:14 Aspirin (Ecotrin Tab) 81 mg QAM PO 09/22/17 08:00 10/22/17 08:59 09/22/17 08:22 81 MG Gabapentin (Neurontin Cap) 300 mg DAILY PO 09/22/17 08:00 10/22/17 08:59 09/22/17 08:22 300 MG Insulin Glargine (Lantus Solostar Pen) 17 units BID SQ 09/21/17 21:00 10/21/17 20:59 09/22/17 08:59 17 UNITS Lorazepam (Ativan Tab) 0.5 mg HS PRN PO 09/21/17 19:45 4/18/18 19:44 Insulin Aspart (novoLOG ASPART) SLIDING SCALE G... ACHS SC 09/21/17 21:00 10/21/17 20:59 09/22/17 13:14 5 UNITS Acetaminophen (Tylenol Tab) 650 mg Q4H PRN PO 09/21/17 19:45 10/21/17 19:44 Al Hydrox/Mg Hydrox/Simethicone (Maalox Max Susp) 15 ml Q4H PRN PO 09/21/17 19:45 10/21/17 19:44 Heparin Sodium (Porcine) (Heparin Sq 5000 Unit/0.5ml) 5,000 unit Q12 SQ 09/22/17 09:00 10/22/17 08:59 Morphine Sulfate (Ms Contin Tab) 100 mg Q12H PO 09/21/17 21:00 10/05/17 20:59 09/22/17 08:22 100 MG Oxycodone/ Acetaminophen (Percocet 5-325mg Tab) 1 tab Q6H PRN PO 09/22/17 11:15 10/06/17 11:14 Cefepime HCl 2000 mg/Syringe 20 ml @ 5 mls/min Q12@0000,1200 IV 09/22/17 13:15 10/02/17 13:14 Linezolid 600 mg/ Prmx 300 ml @ 300 mls/hr Q12@0000,1200 IV 09/22/17 13:15 10/02/17 13:14 Family History Diabetes mellitus Kidney disease Father w/ CKD Social History Smoking Status: Never Smoker Smokeless Tobacco Use: No Alcohol Use: none Drug Use: none Marital Status: Housing Status: lives with family Occupation: disabled . Medically disabled. Never a smoker Review of Systems Constitutional: No fever Respiratory: + cough, + dyspnea on exertion Cardiovascular: No chest pain Abdomen: No pain, No nausea, No vomiting Integumentary: + problem reported (Ulcerative lesions on both legs) A complete review of systems was performed. Pertinent positives are noted above. All other systems are negative. Physical Exam Date Time Temp Pulse Resp B/P (MAP) Pulse Ox O2 Delivery O2 Flow Rate FiO2 09/22/17 08:00 95 Nasal Cannula 3.0 09/22/17 07:21 36.8 87 16 127/62 (83) 95 3.0 09/22/17 00:00 36.8 93 20 99/62 Nasal Cannula 3.0 09/22/17 00:00 Nasal Cannula 3.0 09/21/17 23:50 36.8 93 20 99/62 (74) 91 Nasal Cannula 3.0 09/21/17 22:42 36.9 88 22 111/54 (73) 94 Nasal Cannula 3.0 09/21/17 21:11 93 09/21/17 19:49 86 115/61 90 Nasal Cannula 2.0 09/21/17 18:08 93 18 115/61 98 Nasal Cannula 2.0 09/21/17 18:07 93 09/21/17 16:46 89 91/46 99 Nasal Cannula 2.0 09/21/17 15:07 98 Nasal Cannula 2.0 09/21/17 15:07 96 Nasal Cannula 2.0 09/21/17 15:06 89 Room Air 09/21/17 14:55 36.3 89 20 131/85 84 Room Air General Appearance: + pertinent finding (breathing comfortably at rest on O2 at 3 L / min NC) Head: normocephalic, atraumatic Eyes: PERRL, EOMI Neck: + pertinent finding (short, thick. No JVD) Respiratory/Chest: + crackles (at bases bilaterally) Cardiovascular: regular rate, rhythm (distant heart sounds) Abdomen/GI: normal bowel sounds, non tender, soft, + pertinent finding (obese) Extremities/Musculoskelatal: + pertinent finding (tense pretibial edema. Bandages over LE ulcers) Neurologic/Psych: alert, oriented x 3 Laboratory Results Last 24 Hours Test 09/21/17 15:35 09/21/17 20:11 09/21/17 20:24 09/21/17 20:47 White Blood Count 9.41 K/uL Red Blood Count 3.69 M/uL Hemoglobin 10.5 g/dL Hematocrit 34.0 % Mean Corpuscular Volume 92.1 fL Mean Corpuscular Hemoglobin 28.5 pg Mean Corpuscular Hemoglobin Concent 30.9 g/dl Platelet Count 243 K/uL Mean Platelet Volume 9.2 fL Neutrophils (%) (Auto) 74.8 % Lymphocytes (%) (Auto) 19.7 % Monocytes (%) (Auto) 3.3 % Eosinophils (%) (Auto) 1.7 % Basophils (%) (Auto) 0.1 % Neutrophils # (Auto) 7.04 K/uL Lymphocytes # (Auto) 1.85 K/uL Monocytes # (Auto) 0.31 K/uL Eosinophils # (Auto) 0.16 K/uL Basophils # (Auto) 0.01 K/uL RDW Standard Deviation 49.2 fL RDW Coefficient of Variation 14.7 % Immature Granulocyte % (Auto) 0.4 % Immature Granulocyte # (Auto) 0.04 K/uL D-Dimer 860 ug/L FEU Sodium Level 132 mmol/L 132 mmol/L Potassium Level 4.5 mmol/L 4.7 mmol/L Chloride Level 95 mmol/L 97 mmol/L Carbon Dioxide Level 31 mmol/L 29 mmol/L Anion Gap 6.0 mmol/L 6.0 mmol/L Blood Urea Nitrogen 62 mg/dl 62 mg/dl Creatinine 2.30 mg/dl 2.30 mg/dl Estimated GFR () 36.5 36.5 Estimated GFR (Non- 31.5 31.5 BUN/Creatinine Ratio 26.7 27.0 Random Glucose 86 mg/dl 72 mg/dl Calcium Level 8.2 mg/dl 8.1 mg/dl Total Bilirubin 0.2 mg/dl Direct Bilirubin < 0.1 mg/dl Aspartate Amino Transf (AST/SGOT) 26 U/L Alanine Aminotransferase (ALT/SGPT) 23 U/L Alkaline Phosphatase 94 U/L Troponin I 0.028 ng/ml Total Protein 7.3 gm/dl Albumin 3.1 gm/dl Lipase 46 U/L Urine Color YELLOW Urine Appearance CLEAR Urine pH 5.0 Urine Specific [place] 1.016 Urine Protein NEG Urine Glucose (UA) NEG Urine Ketones NEG Urine Occult Blood NEG Urine Nitrite NEG Urine Bilirubin NEG Urine Urobilinogen NEG Urine Leukocyte Esterase NEG Urine WBC (Auto) 1-5 /hpf Urine RBC (Auto) 0-4 /hpf Urine Hyaline Casts (Auto) 5-10 /lpf Urine Epithelial Cells (Auto) >30 /lpf Urine Bacteria (Auto) NEG Bedside Glucose 75 mg/dl Test 09/21/17 23:32 09/22/17 01:40 09/22/17 06:10 09/22/17 07:30 Bedside Glucose 94 mg/dl 94 mg/dl Urine Color YELLOW Urine Appearance CLEAR Urine pH 5.0 Urine Specific [place] 1.016 Urine Protein NEG Urine Glucose (UA) NEG Urine Ketones NEG Urine Occult Blood NEG Urine Nitrite NEG Urine Bilirubin NEG Urine Urobilinogen NEG Urine Leukocyte Esterase NEG White Blood Count 10.36 K/uL Red Blood Count 3.33 M/uL Hemoglobin 9.4 g/dL Hematocrit 30.4 % Mean Corpuscular Volume 91.3 fL Mean Corpuscular Hemoglobin 28.2 pg Mean Corpuscular Hemoglobin Concent 30.9 g/dl RDW Standard Deviation 48.6 fL RDW Coefficient of Variation 14.7 % Platelet Count 243 K/uL Mean Platelet Volume 9.2 fL Prothrombin Time 10.7 SECONDS Prothromb Time International Ratio 1.0 Sodium Level 134 mmol/L Potassium Level 4.9 mmol/L Chloride Level 99 mmol/L Carbon Dioxide Level 30 mmol/L Anion Gap 5.0 mmol/L Blood Urea Nitrogen 53 mg/dl Creatinine 1.72 mg/dl Est Creatinine Clear Calc Drug Dose 80.9 ml/min Estimated GFR () 51.8 Estimated GFR (Non- 44.7 BUN/Creatinine Ratio 30.7 Random Glucose 82 mg/dl Calcium Level 8.3 mg/dl Test 09/22/17 11:43 Bedside Glucose 160 mg/dl Impression (1) Acute kidney injury (2) Obesity (3) Hypoxia (4) Diabetic ulcer of left foot (5) Diabetes (6) Hypertension KIRSTEN is due to acute inflammation (cellulitis) in the setting of MARCELLUS inhibitor therapy, NSAID, Trimethoprim and diuretics. Urine sediment is acellular. Renal US revealed 12.5 cm kidneys without mass or obstruction. Myoclonic jerking is related to decreased renal clearance of Gabapentin Recommendations -- Discontinue Diclofenac -- Blood pressure has been relatively low. Stop Lisinopril -- Reduce Gabapentin to 300 mg daily -- Change Bactrim to broad spectrum IV antibiotic -- Renal US report reviewed: No hydro. Questionable air within R collecting system. Consider CT if clinically indicated. Patient is currently afebrile without flank discomfort and a bland urine sediment. Will monitor -- Monitor serial PRP. Kidney function is already improving with the above measures
[2017-09-22] MEDS: LINEZOLID / D5W 600 MG in PREMIXED IN D5W 300 ML IV SCH ×2 (13:46→23:46)
[2017-09-22] MEDS: CEFEPIME IV 2,000 MG in SYRINGE 7.5 ML IV SCH ×2 (13:46→23:46)
--- NOTE | 2017-09-22 14:36 | Progress Note ---
Progress Note Date of Service Sep 22, 2017. Progress Note ID Consult Dictated #[id number] A/P: 1. LLE cellulitis -continue current abx, can change zyvox to po -await final cultures -local wound care -thank you
--- NOTE | 2017-09-22 14:45 | Hospitalist Progress Note ---
Hospitalist Progress Note Date of Service Sep 22, 2017. (Lily Farfan ., PA-C) Subjective Pt evaluation today including: conversation w/ patient, conversation w/ family ( at bedside), physical exam, chart review, lab review, review of inpatient medication list Pain: 8/10 sharp right knee pain PO Intake: Tolerating PO diet Voiding: no voiding problems Patient complains of an 8/10 sharp right knee pain. He states he has had ongoing right knee pain, but it got acutely worse yesterday to the point that he cannot bear any weight or stand on it. He states that movement/ weightbearing increases the pain to a 10/10. He is following with Dr. Sinha for this. He also still complains of shortness of breath at rest and with exertion, although this is improved today. He states he was becoming dyspneic even with talking yesterday but is able to speak more easily today. He does note some intermittent wheezing. He states he does not wear oxygen at home. The patient also complains of "twitching" in his upper extremities, which is new. The patient denies fevers, chills, sweats, chest pain, palpitations, claudication, cough, nausea, vomiting, abdominal pain, dysuria, hematuria, urinary retention, paralysis, weakness, numbness and tingling. Additional Comments: See HPI for pertinent positives and negatives. All other systems reviewed and negative. (Lily Farfan ., PA-C) Objective Vital Signs Date Time Temp Pulse Resp B/P (MAP) Pulse Ox O2 Delivery O2 Flow Rate FiO2 09/22/17 08:00 95 Nasal Cannula 3.0 09/22/17 07:21 36.8 87 16 127/62 (83) 95 3.0 09/22/17 00:00 36.8 93 20 99/62 Nasal Cannula 3.0 09/22/17 00:00 Nasal Cannula 3.0 09/21/17 23:50 36.8 93 20 99/62 (74) 91 Nasal Cannula 3.0 09/21/17 22:42 36.9 88 22 111/54 (73) 94 Nasal Cannula 3.0 09/21/17 21:11 93 09/21/17 19:49 86 115/61 90 Nasal Cannula 2.0 09/21/17 18:08 93 18 115/61 98 Nasal Cannula 2.0 09/21/17 18:07 93 09/21/17 16:46 89 91/46 99 Nasal Cannula 2.0 09/21/17 15:07 98 Nasal Cannula 2.0 09/21/17 15:07 96 Nasal Cannula 2.0 09/21/17 15:06 89 Room Air 09/21/17 14:55 36.3 89 20 131/85 84 Room Air (Lily Farfan ., PA-C) Physical Exam Notes: General appearance: +Morbidly obese. Well-developed, well-nourished, no apparent distress Head: Normocephalic, atraumatic Eyes: Normal inspection, PERRL, EOMI ENT: Normal ENT inspection, hearing grossly normal, pharynx normal Neck: Supple, no JVD, trachea midline Respiratory/Chest: +Decreased breath sounds, difficult to assess due to body habitus. Currently on 3L NC. Lungs clear to auscultation, no respiratory distress Cardiovascular: Regular rate & rhythm, no gallop, no murmur Abdomen/GI: Normal bowel sounds, non-tender, soft Extremities/Musculoskeletal: +Ulcerations dressed on LLE. Erythema LLE. Chronic venous stasis changes bilaterally. 2+ pitting edema bilaterally. Medial aspect of right knee TTP. Crepitus noted in right knee with ROM. No calf tenderness Neurological/Psych: +Myoclonic jerking of upper extremities noted. Alert, normal mood/affect, oriented x 3 Skin: Normal color, warm/dry, no rash (Lily Farfan ., PA-C) Laboratory Results Last 24 Hours Test 09/21/17 15:35 09/21/17 20:11 09/21/17 20:24 09/21/17 20:47 White Blood Count 9.41 K/uL Red Blood Count 3.69 M/uL Hemoglobin 10.5 g/dL Hematocrit 34.0 % Mean Corpuscular Volume 92.1 fL Mean Corpuscular Hemoglobin 28.5 pg Mean Corpuscular Hemoglobin Concent 30.9 g/dl Platelet Count 243 K/uL Mean Platelet Volume 9.2 fL Neutrophils (%) (Auto) 74.8 % Lymphocytes (%) (Auto) 19.7 % Monocytes (%) (Auto) 3.3 % Eosinophils (%) (Auto) 1.7 % Basophils (%) (Auto) 0.1 % Neutrophils # (Auto) 7.04 K/uL Lymphocytes # (Auto) 1.85 K/uL Monocytes # (Auto) 0.31 K/uL Eosinophils # (Auto) 0.16 K/uL Basophils # (Auto) 0.01 K/uL RDW Standard Deviation 49.2 fL RDW Coefficient of Variation 14.7 % Immature Granulocyte % (Auto) 0.4 % Immature Granulocyte # (Auto) 0.04 K/uL D-Dimer 860 ug/L FEU Sodium Level 132 mmol/L 132 mmol/L Potassium Level 4.5 mmol/L 4.7 mmol/L Chloride Level 95 mmol/L 97 mmol/L Carbon Dioxide Level 31 mmol/L 29 mmol/L Anion Gap 6.0 mmol/L 6.0 mmol/L Blood Urea Nitrogen 62 mg/dl 62 mg/dl Creatinine 2.30 mg/dl 2.30 mg/dl Estimated GFR () 36.5 36.5 Estimated GFR (Non- 31.5 31.5 BUN/Creatinine Ratio 26.7 27.0 Random Glucose 86 mg/dl 72 mg/dl Calcium Level 8.2 mg/dl 8.1 mg/dl Total Bilirubin 0.2 mg/dl Direct Bilirubin < 0.1 mg/dl Aspartate Amino Transf (AST/SGOT) 26 U/L Alanine Aminotransferase (ALT/SGPT) 23 U/L Alkaline Phosphatase 94 U/L Troponin I 0.028 ng/ml Total Protein 7.3 gm/dl Albumin 3.1 gm/dl Lipase 46 U/L Urine Color YELLOW Urine Appearance CLEAR Urine pH 5.0 Urine Specific [place] 1.016 Urine Protein NEG Urine Glucose (UA) NEG Urine Ketones NEG Urine Occult Blood NEG Urine Nitrite NEG Urine Bilirubin NEG Urine Urobilinogen NEG Urine Leukocyte Esterase NEG Urine WBC (Auto) 1-5 /hpf Urine RBC (Auto) 0-4 /hpf Urine Hyaline Casts (Auto) 5-10 /lpf Urine Epithelial Cells (Auto) >30 /lpf Urine Bacteria (Auto) NEG Bedside Glucose 75 mg/dl Test 09/21/17 23:32 09/22/17 01:40 09/22/17 06:10 09/22/17 07:30 Bedside Glucose 94 mg/dl 94 mg/dl Urine Color YELLOW Urine Appearance CLEAR Urine pH 5.0 Urine Specific [place] 1.016 Urine Protein NEG Urine Glucose (UA) NEG Urine Ketones NEG Urine Occult Blood NEG Urine Nitrite NEG Urine Bilirubin NEG Urine Urobilinogen NEG Urine Leukocyte Esterase NEG White Blood Count 10.36 K/uL Red Blood Count 3.33 M/uL Hemoglobin 9.4 g/dL Hematocrit 30.4 % Mean Corpuscular Volume 91.3 fL Mean Corpuscular Hemoglobin 28.2 pg Mean Corpuscular Hemoglobin Concent 30.9 g/dl RDW Standard Deviation 48.6 fL RDW Coefficient of Variation 14.7 % Platelet Count 243 K/uL Mean Platelet Volume 9.2 fL Prothrombin Time 10.7 SECONDS Prothromb Time International Ratio 1.0 Sodium Level 134 mmol/L Potassium Level 4.9 mmol/L Chloride Level 99 mmol/L Carbon Dioxide Level 30 mmol/L Anion Gap 5.0 mmol/L Blood Urea Nitrogen 53 mg/dl Creatinine 1.72 mg/dl Est Creatinine Clear Calc Drug Dose 80.9 ml/min Estimated GFR () 51.8 Estimated GFR (Non- 44.7 BUN/Creatinine Ratio 30.7 Random Glucose 82 mg/dl Calcium Level 8.3 mg/dl Test 09/22/17 11:43 Bedside Glucose 160 mg/dl (Lily Farfan ., PA-C) Diagnostic Results Reviewed the following studies and agree with interpretation as follows: EXAMINATION: RENAL ULTRASOUND CLINICAL HISTORY: Acute renal injury COMPARISON STUDY: None FINDINGS: The right kidney measures 12.2 cm. The left kidney measures 12.8 cm. There is no evidence of hydronephrosis. There are multiple nonshadowing echogenic foci within the right kidney. Neither ureteral jet was visualized. IMPRESSION : 1. Markedly limited study from a technical standpoint due to morbid obesity 2. No evidence of hydronephrosis 3. Multiple nonspecific echogenic foci within the right kidney demonstrating ringdown artifact. If there is clinical concern over the presence of intrarenal gas, then CT scanning should be obtained in follow-up. (Lily Farfan ., PA-C) Assessment and Plan 51 y/o male with a history of HTN, HLD, DM II w/neuropathy, anxiety, and LLE ulcerations and cellulitis who presents with worsening shortness of breath, wheezing, myoclonic jerking and sleepiness. Pt found to be in KIRSTEN on admission. KIRSTEN--improving -Admit to med/surg -Creatinine 1.72 on 09/22, improved from 2.30. Baseline 0.8 -Lisinopril, Lasix, Diclofenac, Tramadol, Bactrim held due to KIRSTEN -Renal ultrasound negative for hydronephrosis -Nephrology consulted, appreciate recs: KIRSTEN due to acute inflammation from cellulitis in setting of MARCELLUS inhibitor, NSAIDs, trimethoprim and diuretics. Myoclonic jerking due to decreased renal clearance of gabapentin. D/C diclofenac. BP relatively low, can d/c lisinopril. Reduce gabapentin to 300 mg PO daily. Change Bactrim to IV broad spectrum abx. -UA unremarkable -Monitor I's & O's -IVF d/c'd SOB--improving, reports feeling less dyspneic -O2 by protocol. Pt currently on 3L, does not wear oxygen at home -CXR grossly unremarkable -D-dimer elevated at 860 -Unable to obtain CTA chest due to KIRSTEN -Venous Dopplers negative for DVT bilaterally in lower extremities HTN, HLD--stable -Lisinopril held due to KIRSTEN, BP has been low/low normal -Resume pravastatin 40 mg PO qd DM II w/neuropathy--HgbA1c 7.5 on 06/23/17 -Home Lantus decreased to 17 units SC BID. Sugars adequately controlled here -Insulin sliding scale -Check BSGs q ac and qhs -Gabapentin decreased to 300 mg PO qd Anxiety--stable -Continue Ativan prn LLE cellulitis/ulcers--ongoing -Pt on Keflex and Bactrim for over one week without improvement -D/C Keflex, Bactrim held due to KIRSTEN -Start cefepime 2 gm IV q12h and linezolid 600 mg IV q12h -Wound care nurse consulted -Wound cultures pending -Infectious disease consulted, appreciate recs Right knee pain--ongoing -Consult orthopedics. Follows with Dr. Sinha. Per pt, had been scheduled for MRI of knee today as outpatient -Add Percocet 5/325 mg 1 tab q6h prn pain -Continue MS Contin 100 mg PO BID. Reportedly takes 130 mg PO BID at home in addition to diclofenac 50 mg PO qd, Voltaren gel and tramadol -Diclofenac and tramadol held as above DVT prophylaxis -Heparin 5000 units SC q12h Code Status -Level I, FULL RESUSCITATION STATUS (Lily Farfan ., PA-C) 51 y/o male with a history of HTN, HLD, DM II w/neuropathy, anxiety, and LLE ulcerations and cellulitis who presents with worsening shortness of breath, wheezing, myoclonic jerking and sleepiness. Pt found to be in KIRSTEN on admission. I personally interviewed and examined the patient. I agree with history of present illness and physical exam mentioned above, I also performed my own history taking and examination. Past medical history and review of system has been obtained by myself I reviewed all pertinent labs and studies Reviewed current medications I discussed and formulated of the assessment and plan mentioned above. Please refer to the Summary mentioned below. 51-year-old man with morbid obesity, hypertension, dyslipidemia, diabetes mellitus insulin requiring with neuropathy, patient has bilateral lower extremity cellulitis/ulceration was placed on Bactrim and Keflex as an outpatient about 10 days ago. Presented to the ED with increased pain in his lower extremity and shortness of breath. He was found to have acute renal failure, creatinine was 2.7 up from 0.81 month ago, he was also found to have hypoxic respiratory failure. His acute kidney injury most likely secondary to Bactrim, decreased oral intake, and diclofenac Sodium that he takes for her knee pain. Stop all these drugs, continue IV fluid hydration, ultrasound renal shows questionable gas in renal system, this is believed to be artifact as he does not look that toxic. Nephrology consult appreciated. His renal function is slowly improving continue to follow up in a.m. As far as his cellulitis he failed both Keflex and Bactrim, I examined the wound and they found discharge, sent wound cultures, switch Keflex to cefepime, switch Bactrim to Zyvox broadening the coverage for both gram-negative and gram- positive, infectious disease consult appreciated. As for his knee pain orthopedic was consulted. As for hypoxemia, I really believe it is not a new problem, I think it is a mixture of obesity hypoventilation syndrome, obstructive sleep apnea that is untreated, and possible underlying diastolic or systolic congestive heart failure. Will start patient on Xopenex/Atrovent as a therapeutic testing for any underlying obstructive/reactive airway disease Also discussed with patient the importance of sleep study and the use of BiPAP/ CPAP if indicated, patient reported being claustrophobic, I discussed with him nasal pillows that can be used instead of CPAP mask General Appearance: not in acute distress, morbidly obese Eyes: normal Sclerae, extraocular muscle intact ENT: hearing grossly normal Neck: supple Respiratory/Chest: normal air entry bilateral ,no respiratory distress, no accessory muscle use Cardiovascular: regular rate, rhythm, no murmur Abdomen: non tender, soft, no masses Extremities: no edema, has 2 x 4 cm ulcer with purulent discharge on the chain of left tibia, 2 x 2 centimeter ulcer on the back of his right calf muscle. Neurologic/Psychiatric: Awake alert oriented times place and person moves all extremities sensation intact cranial nerves II-12 appear to be intact Skin: normal color, warm/dry, no rash Josefina Chang MD, [facility] hospitalist group (Josefina Gibson MD)
--- NOTE | 2017-09-22 14:55 | INFECT. DISEASE CONSULTATION ---
DATE OF CONSULTATION: 09/22/2017 HISTORY OF PRESENT ILLNESS: This is a 51-year-old gentleman who was admitted to the hospital with worsening shortness of breath, fatigue and lower extremity edema. He was recently diagnosed with a left lower extremity cellulitis and was started on antibiotics. He states he initially started antibiotics some weeks ago and has been on alternating courses with no significant improvement and it appears most recently he was started on Keflex and Bactrim by his primary physician. He also has ulcerations over the anterior portion of his left rao, but denies any trauma to the area. He states that these began as weeping blisters and subsequently opened and became erythematous. He denies any fevers or chills. He is currently on cefepime and Zyvox. Infectious diseases was consulted for Zyvox approval. He has been afebrile at home. His white blood cell count is within normal limits. He does have an elevated creatinine at 1.7. A UA is negative and cultures are pending. He states that some years ago in 2012, he was followed by the wound care center for lower extremity osteomyelitis and underwent treatment with hyperbaric oxygen with success. He has not had any subsequent wound care evaluation since then. His remaining review of systems is unremarkable. PAST MEDICAL HISTORY: Significant for type 2 diabetes with insulin dependence, diabetic neuropathy, hypertension, hyperlipidemia, morbid obesity, anxiety and depression. FAMILY HISTORY: Noncontributory. SOCIAL HISTORY: Negative for tobacco use, alcohol use or drug use. ALLERGIES: STATINS. MEDICATIONS: Include cefepime, linezolid, oxycodone, subQ heparin, Ecotrin, Neurontin, Lantus insulin, MS Contin, Ativan, Tylenol, and Maalox. PHYSICAL EXAMINATION: VITAL SIGNS: He is afebrile, pulse 87, respiratory rate 16, blood pressure 127/62, oxygen saturation is 95% on 3 liters nasal cannula. GENERAL: He is awake, alert and oriented x3. He is in no acute distress. HEENT: Mucous membranes are moist. Extraocular muscles are intact. HEART: Without murmur. LUNGS: Clear. ABDOMEN: Soft. EXTREMITIES: There is significant lower extremity edema bilaterally. Examination of the left lower extremity reveals 2 superficial ulcerations on the anterior portion of the rao with minimal weeping and surrounding erythema. LABORATORY STUDIES: CBC today reveals a white blood cell count of 10.3, hemoglobin 9.4, and glucose is 243. Chemistry panel reveals a sodium of 134, potassium 4.9, chloride 99, bicarbonate 30, BUN 53, creatinine 1.7, and glucose is 160. UA is negative. Wound culture is pending. There are no organisms seen on Gram stain. IMAGING DATA: A chest x-ray done in the ER yesterday shows atelectasis. Dopplers show no evidence of DVT. ASSESSMENT AND PLAN: Left lower extremity cellulitis. I agree with his current course of antibiotics; however, his Zyvox could be changed to p.o. Cultures are pending and additional antibiotic recommendations will be made based on culture results. He may well benefit from wound care evaluation post-discharge from the hospital. Thank you for this consultation.
[2017-09-22 15:48] VITALS: BP 125/57; PULSE 82; TEMP 36.9; O2SAT 96
--- NOTE | 2017-09-22 17:17 | Orthopedic Progress Note ---
Orthopedic Progress Note Date of Service Sep 22, 2017. Subjective Additional Notes: 51-year-old white male who was admitted for increasing shortness of breath. Patient has other history including insulin-dependent diabetes mellitus , hypertension, HLP, morbid obesity, lower extremity neuropathy, history of lower extremity cellulitis with ulceration on the left. Patient has also been having increasing right knee pain of which he has seen Dr. Sinha in the past. He states that his knee pain has been happening for a long time however in the last 2-3 weeks it had been increasing. He then got into see Dr. Sinha who ordered an MRI of his right knee. Patient states that he is claustrophobic and most likely will not get the MRI. He currently states that he had severe pain in the right knee yesterday because he had gone approximately 15 hours without pain medications. Per his med reconciliation sheet, he is only on diclofenac at this time. Currently he states that his pain is much better today. He uses a cane to ambulate and states that he is able to gingerly put weight on the right knee to ambulate. We have been asked to see him for his right knee pain. Objective On examination of the right knee, there is no overt erythema and no warmth to touch to the right knee. It feels likely he has a mild to moderate effusion but currently he has the knee bent to approximately 90 and is able to fully extend the knee at this time. Flexing and extending the knee does not seem to cause him overt pain at this time of which she states again that has gotten better. He describes it most of his pain is over the anterior medial aspect of the joint line. On palpation of this area, he does state that it is mildly tender. There is no warmth or heat generated from this area but he has a small reddened area in this location. He does have some noted venous stasis changes of the lower extremity at the ankle. This area appears to be mildly red. Date Time Temp Pulse Resp B/P (MAP) Pulse Ox O2 Delivery O2 Flow Rate FiO2 09/22/17 15:48 36.9 82 18 125/57 (79) 96 09/22/17 08:00 95 Nasal Cannula 3.0 09/22/17 07:21 36.8 87 16 127/62 (83) 95 3.0 09/22/17 00:00 36.8 93 20 99/62 Nasal Cannula 3.0 09/22/17 00:00 Nasal Cannula 3.0 09/21/17 23:50 36.8 93 20 99/62 (74) 91 Nasal Cannula 3.0 09/21/17 22:42 36.9 88 22 111/54 (73) 94 Nasal Cannula 3.0 09/21/17 21:11 93 09/21/17 19:49 86 115/61 90 Nasal Cannula 2.0 09/21/17 18:08 93 18 115/61 98 Nasal Cannula 2.0 09/21/17 18:07 93 Laboratory Results 24 Hours: Test 09/22/17 06:10 Hematocrit 30.4 % Hemoglobin 9.4 g/dL Prothromb Time International Ratio 1.0 Prothrombin Time 10.7 SECONDS Assessment & Plan Assessment: Ongoing right knee pain. Plan: As the patient saw Dr. Sinha recently in the past, I will check our x-rays to see if he has anything current. If not we will plan on getting an AP and lateral of his right knee. I do not feel that the knee is infected at this time. White count is essentially normal and he has been afebrile. The knee is obviously feeling better with the pain medication that he has been receiving. He is obviously not a candidate for nonsteroidal anti-inflammatory medications due to his increased BUN and creatinine. I will discuss the case with Dr. Sinha who is here tomorrow. For now we will continue his Percocet. He can be up weightbearing as tolerated on the right knee. He did not mention that he has had injections in the past and may be a candidate.
[2017-09-22] MEDS ORDERED: ONDANSETRON INJ 2 MG/ML 2 ML VIAL IV. PRN (18:00)
--- NOTE | 2017-09-22 18:41 | ORTHOPEDIC CONSULTATION ---
DATE OF CONSULTATION: 09/22/2017 HISTORY OF PRESENT ILLNESS: The patient is a 51-year-old white male being seen and evaluated for complaints of right knee pain. He has previously had complaints of right knee pain 2 weeks prior and was seen by Dr. Zurdo Sinha for orthopedic evaluation of complaints of pain and instability related to the pain, it is less now than what it was then, although he still does have complaints of pain. X-rays from 09/29/2017 from [facility] were evaluated today. There is no evidence of bone abnormalities noted. No fractures noted. No significant degenerative changes noted. There is only an AP view. The patient has no evidence of clinical infection to his knee and no prepatellar bursitis. Due to patient's complaints of instability, we will discuss regarding ability to get an open MRI scan for patient for evaluation of meniscus and ligamentous structures, and we will follow along as an outpatient. I will discuss the case with Dr. Sinha. BRYCE
[2017-09-23] VITALS: O2SAT 95
[2017-09-23 06:41] LABS: BASO % 0.1 %; BASO ABS # 0.01 K/uL (0-0.2); EOS % 3.1 %; EOS ABS # 0.25 K/uL (0-0.5); HEMATOCRIT 34.2 % (42-52); HEMOGLOBIN 10.6 g/dL (14.0-18.0); IG# 0.02 K/uL (0.00-0.02); LYMPH % 25.5 %; LYMPH ABS # 2.07 K/uL (1.2-3.4); MEAN CELL VOLUME 91.9 fL (80-100); MEAN CORPUSCULAR HEMOGLOBIN 28.5 pg (25-34); MEAN PLATELET VOLUME 9.2 fL (7.4-10.4); MONO % 5.8 %; MONO ABS # 0.47 K/uL (0.11-0.59); NEUT % 65.3 %; NEUT ABS # 5.29 K/uL (1.4-6.5); PLATELET COUNT 249 K/uL (130-400); RED CELL DISTRIBUTION WIDTH CV 14.6 % (11.5-14.5); RED CELL DISTRIBUTION WIDTH SD 48.8 fL (36.4-46.3); WHITE BLOOD COUNT 8.11 K/uL (4.8-10.8)
[2017-09-23 07:18] LABS: ALBUMIN 3.3 gm/dl (3.4-5.0); CALCIUM 9.5 mg/dl (8.5-10.1); CREATININE 1.03 mg/dl (0.60-1.40); POTASSIUM 4.7 mmol/L (3.5-5.1)
[2017-09-23 07:20] LABS: TOTAL PROTEIN 8.1 gm/dl (6.4-8.2)
[2017-09-23 07:47] VITALS: BP 158/76; PULSE 90; TEMP 37.2; O2SAT 95
[2017-09-23 07:57] VITALS: O2SAT 95
[2017-09-23] MEDS ORDERED: PRAVASTATIN SOD 40 MG TAB PO SCH (08:00)
[2017-09-23] MEDS: ASPIRIN 81 MG ECTAB PO SCH (08:59)
[2017-09-23] MEDS: LACTOBACILLUS ACIDOPHILUS (FLORANEX) TAB PO SCH ×2 (08:59→12:00)
[2017-09-23] MEDS: MORPHINE SULFATE 100 MG PO SCH (08:59)
[2017-09-23 09:00] VITALS: O2SAT 92
[2017-09-23 09:00] LABS: HEMOGLOBIN A1C 7.9 % (4.5-5.6)
[2017-09-23] MEDS: HEPARIN SOD 5000 UNIT/0.5 ML CARP SQ SCH (09:00)
[2017-09-23] MEDS: GABAPENTIN 300 MG CAP PO SCH (09:00)
[2017-09-23] MEDS: INSULIN ASPART 100 UNITS/ML 3 ML PEN SC SCH ×2 (09:06→11:00)
[2017-09-23] MEDS: INSULIN GLARGINE SOLOSTAR 100 UNITS/ML 3 ML PEN SQ SCH (09:17)
--- NOTE | 2017-09-23 10:51 | Nephrology Progress Note ---
Nephrology Progress Note Date of Service Sep 23, 2017. Chief Complaint KIRSTEN Subjective Mr. Saenz was seen & examined in his hospital room this morning. He reports good urine output. His breathing is subjectively improved. Review of Systems Constitutional: No fever Cardiovascular: No chest pain Respiratory: No dyspnea at rest Abdomen: No pain, No nausea, No vomiting Extremities: No leg edema A complete review of systems was performed. Pertinent positives are noted above. All other systems are negative. Vital Signs Last 8 Hrs Date Time Temp Pulse Resp B/P (MAP) Pulse Ox O2 Delivery O2 Flow Rate FiO2 09/23/17 09:00 Room Air 92.0 09/23/17 07:57 95 Nasal Cannula 3.0 09/23/17 07:47 37.2 90 18 158/76 (103) 95 Nasal Cannula 3.0 Last Recorded Weight Weight (Kilograms): 182.000 Physical Exam General Appearance: no apparent distress Head: normocephalic, atraumatic Eyes: PERRL, EOMI Neck: no adenopathy Respiratory/Chest: lungs clear, no respiratory distress Cardiovascular: regular rate, rhythm Abdomen/GI: non tender, soft Extremities/Musculoskelatal: + pertinent finding (chronic LE edema) Neurologic/Psych: alert, oriented x 3 Family History Diabetes mellitus Kidney disease Father w/ CKD Social History Smoking Status: Never smoker Smokeless Tobacco Use: No Alcohol Use: none Drug Use: none Marital Status: Housing Status: lives with family Occupation: disabled . Medically disabled. Never a smoker Laboratory Results Past 24 Hours 09/23/17 06:02 Red Blood Count 3.72, Mean Corpuscular Volume 91.9, Mean Corpuscular Hemoglobin 28.5, Mean Corpuscular Hemoglobin Concent 31.0, Mean Platelet Volume 9.2, Neutrophils (%) (Auto) 65.3, Lymphocytes (%) (Auto) 25.5, Monocytes (%) (Auto) 5.8, Eosinophils (%) (Auto) 3.1, Basophils (%) (Auto) 0.1, Neutrophils # (Auto) 5.29, Lymphocytes # (Auto) 2.07, Monocytes # (Auto) 0.47, Eosinophils # (Auto) 0.25, Basophils # (Auto) 0.01 09/23/17 06:02 Test 09/22/17 11:43 09/22/17 15:24 09/22/17 16:26 09/22/17 20:03 Bedside Glucose 160 mg/dl (70-99) 105 mg/dl (70-99) 87 mg/dl (70-99) 80 mg/dl (70-99) Test 09/23/17 06:02 09/23/17 08:01 White Blood Count 8.11 K/uL (4.8-10.8) Red Blood Count 3.72 M/uL (4.7-6.1) Hemoglobin 10.6 g/dL (14.0-18.0) Hematocrit 34.2 % (42-52) Mean Corpuscular Volume 91.9 fL (80-100) Mean Corpuscular Hemoglobin 28.5 pg (25-34) Mean Corpuscular Hemoglobin Concent 31.0 g/dl (32-36) Platelet Count 249 K/uL (130-400) Mean Platelet Volume 9.2 fL (7.4-10.4) Neutrophils (%) (Auto) 65.3 % Lymphocytes (%) (Auto) 25.5 % Monocytes (%) (Auto) 5.8 % Eosinophils (%) (Auto) 3.1 % Basophils (%) (Auto) 0.1 % Neutrophils # (Auto) 5.29 K/uL (1.4-6.5) Lymphocytes # (Auto) 2.07 K/uL (1.2-3.4) Monocytes # (Auto) 0.47 K/uL (0.11-0.59) Eosinophils # (Auto) 0.25 K/uL (0-0.5) Basophils # (Auto) 0.01 K/uL (0-0.2) RDW Standard Deviation 48.8 fL (36.4-46.3) RDW Coefficient of Variation 14.6 % (11.5-14.5) Immature Granulocyte % (Auto) 0.2 % Immature Granulocyte # (Auto) 0.02 K/uL (0.00-0.02) Anion Gap 5.0 mmol/L (3-11) Est Creatinine Clear Calc Drug Dose 135.1 ml/min Estimated GFR () 96.3 Estimated GFR (Non- 83.1 BUN/Creatinine Ratio 27.6 (10-20) Estimated Average Glucose 180 mg/dl Hemoglobin A1c 7.9 % (4.5-5.6) Calcium Level 9.5 mg/dl (8.5-10.1) Magnesium Level 2.7 mg/dl (1.8-2.4) Total Bilirubin 0.3 mg/dl (0.2-1) Aspartate Amino Transf (AST/SGOT) 51 U/L (15-37) Alanine Aminotransferase (ALT/SGPT) 29 U/L (12-78) Alkaline Phosphatase 95 U/L (45-117) Total Protein 8.1 gm/dl (6.4-8.2) Albumin 3.3 gm/dl (3.4-5.0) Globulin 4.8 gm/dl (2.5-4.0) Albumin/Globulin Ratio 0.7 (0.9-2) Bedside Glucose 71 mg/dl (70-99) Allergies Coded Allergies: Atorvastatin (Verified Allergy, Mild, UNKNOWN, 09/14/17) Simvastatin (Verified Allergy, Mild, UNKNOWN, 09/14/17) Medications Current Inpatient Medications Medications (Trade) Dose Ordered Sig/Mandi Route Start Time Stop Time Status Last Admin Dose Admin Ioversol (Optiray 320) 100 ml UD PRN IV 09/21/17 15:15 09/25/17 15:14 Aspirin (Ecotrin Tab) 81 mg QAM PO 09/22/17 08:00 10/22/17 08:59 09/23/17 08:59 81 MG Gabapentin (Neurontin Cap) 300 mg DAILY PO 09/22/17 08:00 10/22/17 08:59 09/23/17 09:00 300 MG Insulin Glargine (Lantus Solostar Pen) 17 units BID SQ 09/21/17 21:00 10/21/17 20:59 09/23/17 09:17 17 UNITS Lorazepam (Ativan Tab) 0.5 mg HS PRN PO 09/21/17 19:45 10/21/17 19:44 09/22/17 23:46 0.5 MG Insulin Aspart (novoLOG ASPART) SLIDING SCALE G... ACHS SC 09/21/17 21:00 10/21/17 20:59 09/22/17 17:59 2 UNITS Acetaminophen (Tylenol Tab) 650 mg Q4H PRN PO 09/21/17 19:45 10/21/17 19:44 Al Hydrox/Mg Hydrox/Simethicone (Maalox Max Susp) 15 ml Q4H PRN PO 09/21/17 19:45 10/21/17 19:44 Heparin Sodium (Porcine) (Heparin Sq 5000 Unit/0.5ml) 5,000 unit Q12 SQ 09/22/17 09:00 10/22/17 08:59 09/22/17 20:13 5,000 UNIT Morphine Sulfate (Ms Contin Tab) 100 mg Q12H PO 09/21/17 21:00 10/05/17 20:59 09/23/17 08:59 100 MG Oxycodone/ Acetaminophen (Percocet 5-325mg Tab) 1 tab Q6H PRN PO 09/22/17 11:15 10/06/17 11:14 Cefepime HCl 2000 mg/Syringe 20 ml @ 5 mls/min Q12@0000,1200 IV 09/22/17 13:15 10/02/17 13:14 09/22/17 23:46 5 MLS/MIN Pravastatin Sodium (Pravachol Tab) 40 mg DAILY PO 09/23/17 08:00 10/23/17 07:59 09/23/17 09:00 40 MG Ondansetron HCl (Zofran Inj) 4 mg Q6H PRN IV. 09/22/17 18:00 10/22/17 17:59 Lactobacillus Acidophilus (Floranex Tab) 4 tab TIDM PO 09/23/17 08:00 10/23/17 07:59 09/23/17 08:59 4 TAB Linezolid (Zyvox Tab) 600 mg BID PO 09/23/17 20:00 10/02/17 19:59 Impression (1) Acute kidney injury (2) Obesity (3) Hypoxia (4) Diabetic ulcer of left foot (5) Diabetes (6) Hypertension KIRSTEN is due to acute inflammation (cellulitis) in the setting of MARCELLUS inhibitor therapy, NSAID, Trimethoprim and diuretics. Urine sediment is acellular. Renal US revealed 12.5 cm kidneys without mass or obstruction. Myoclonic jerking is related to decreased renal clearance of Gabapentin Recommendations -- Avoid Diclofenac and other NSAIDS -- Blood pressure has been relatively low. Continue to hold Lisinopril -- Renal US report reviewed: No hydro. Questionable air within R collecting system. Consider CT if clinically indicated. Patient is currently afebrile without flank discomfort and a bland urine sediment. Will monitor -- Kidney function has recovered. No further Nephrology evaluation indicated at this time. Will sign off. Please call if further Nephrology assistance needed.
[2017-09-23 11:37] VITALS: Ht 172.7 cm; Wt 182.0 kg
[2017-09-23] MEDS: CEFEPIME IV 2,000 MG in SYRINGE 7.5 ML IV SCH (12:00)
[2017-09-23] MEDS ORDERED: MORP1TAB12 PO (12:39)
[2017-09-23] MEDS ORDERED: MORP1TAB14 PO (12:39)
[2017-09-23] MEDS ORDERED: DOXY-300 PO (12:42)
[2017-09-23] MEDS ORDERED: OXYC-57 PO (12:42)
--- NOTE | 2017-09-23 12:50 | Discharge Instructions ---
Discharge Instructions Date of Service Sep 23, 2017. Admission Reason for Admission: Dwight (Acute Kidney Injury) Discharge Discharge Diagnosis / Problem: Acute kidney injury Discharge Goals Goal(s): Decrease discomfort, Improve function, Diagnostic testing, Therapeutic intervention Activity Recommendations Activity Limitations: resume your previous activity (as tolerated) . Instructions / Follow-Up Instructions / Follow-Up You were admitted to the hospital after being found with acute kidney injury. This was likely caused by a combination of factors, including your ongoing cellulitis in the left leg, the use of Bactrim (antibiotic) and your diuretics. Some of your medications were held and you were treated with IV fluids. Your kidney function is now back to normal. You are now medically stable for discharge. Medications: *STOP taking Keflex and Bactrim. You have instead been started on a new antibiotic for your leg *Please take doxycycline 100 mg twice a day for 7 days for your leg infection. You will follow up with infectious disease (at the wound care clinic) to ensure resolution. *Please STOP taking your lisinopril and furosemide (Lasix) for now until you have followed up with your primary care provider, as these medications may have contributed to your acute kidney injury. *STOP diclofenac, as this also contributed to your acute kidney injury. *You have been provided a prescription for a few days of Percocet for breakthrough pain in your right knee. You may take 1 tablet up to every 6 hours as needed for pain on top of your home morphine doses. *Continue your other home medications as prescribed. Follow up: *You will be scheduled to follow up with your primary care provider, the wound care clinic, and infectious disease. *You can continue to follow up with orthopedics (Dr. Sinha) as needed regarding your knee pain. Please seek medical attention if you experience fevers, chills, sweats, dizziness/lightheadedness, loss of consciousness, chest pain, shortness of breath, nausea, vomiting, numbness or tingling. Current Hospital Diet Patient's current hospital diet: Diabetes Type 2 Diet, Renal Diet Discharge Diet Recommended Diet: AHA Diet (Heart Healthy), Diabetes Type 2 Diet Pending Studies Studies pending at discharge: no Laboratory Results Hemoglobin A1c Test 09/23/17 06:02 Range/Units Estimated Average Glucose 180 mg/dl Hemoglobin A1c 7.9 H 4.5-5.6 % Lipid Panel Test 08/17/17 00:00 Range/Units Triglycerides Level 90 0-150 mg/dl Cholesterol Level 150 0-200 mg/dl HDL Cholesterol 47 mg/dl Cholesterol/HDL Ratio 3.2 LDL Cholesterol, Calculated 85 mg/dl Medical Emergencies . Who to Call and When: Medical Emergencies: If at any time you feel your situation is an emergency, please call 911 immediately. . Non-Emergent Contact Non-Emergency issues call your: Primary Care Provider Call Non-Emergent contact if: you have a fever, your pain is not controlled, your pain is worsening, your pain is unusual for you, your pain is concerning you, wound has increased drainage, wound has increased redness, wound has increased pain, you have any medication questions . . "Provider Documentation" section prepared by Lily Farfan. . [place] Drug Monitoring Program Search Results: patient reviewed within database, no issues identified
[2017-09-23 13:22] VITALS: BP 158/76; PULSE 90; TEMP 37.2; O2SAT 92
--- NOTE | 2017-09-23 16:30 | Discharge Summary ---
Discharge Summary Date of Service Sep 23, 2017. Discharge Summary Admission Date: Sep 21, 2017 at 20:01 Discharge Date: Sep 23, 2017 Discharge Disposition: Home Principal Diagnosis: Acute kidney injury Problems/Secondary Diagnoses: Right knee pain, HTN, HLD, DM II w/neuropathy, anxiety, and LLE ulcerations and cellulitis Immunizations: Have You Had Influenza Vaccine: Unknown Influenza Vaccine Date: Apr 01, 2012 History of Tetanus Vaccine?: Unknown History of Pneumococcal: Unknown Pneumococcal Date: Jun 01, 2009 History of Hepatitis B Vaccine: Unknown Consultations: Nephrology Infectious disease Orthopedics Medication Reconciliation New Medications: Doxycycline (Monohydrate) (Doxycycline) 100 Mg Cap 100 MG PO BID for 7 Days, #14 CAP Oxycodone/Acetaminophen 5MG/325MG (Percocet 5MG/325MG) Tab 1 TAB PO Q6H PRN for Pain for 3 Days, #12 TAB Continued Medications: Aspirin Enteric Coated (Ecotrin Or Generic) 81 Mg Tab 81 MG PO QAM, TAB Gabapentin (Neurontin) 300 Mg Cap 900 MG PO TID, CAP Insulin Aspart (Novolog) 100 Units/Ml Inj UNITS SQ SLIDING SCALE Insulin Glargine (Lantus) 100 Unit/Ml Inj 76 UNITS SQ QPM Lorazepam (Ativan) 0.5 Mg Tab 0.5 MG PO Q6HR PRN, TAB Metaxalone (Skelaxin) 800 Mg Tab 800 MG PO TID PRN, TAB Morphine Sulfate (Morphine Sulfate Er) 30 Mg Tab 30 MG PO BID Morphine Sulfate (Morphine Sulfate Er) 100 Mg Tab 100 MG PO BID Multivitamins/Minerals (Mvi With Minerals) Tab 1 TAB PO QPM, TAB Mupirocin (Bactroban 2% Oint) 66 Appln/22 Gm Oint 1 APPLN EXT BID, TUBE Pravastatin Sodium (Pravachol) 20 Mg Tab 40 MG PO DAILY, TAB Discontinued Medications: Cephalexin Monohydrate (Keflex) 500 Mg Cap 500 MG PO QID, CAP BEGIN 09/14/17 X 7 DAYS Diclofenac Sod (Diclofenac Sodium Dr) 50 Mg Tabec 50 MG PO QID PRN for Pain Diclofenac Sodium (Topical) (Diclofenac Sodium) 1 % Gel 2 GM TOP QID PRN for Pain Furosemide (Lasix) 40 Mg Tab 40 MG PO DAILY, TAB Lisinopril (Zestril) 20 Mg Tab 20 MG PO DAILY, TAB Sulfa/Trimethoprim (Bactrim Ds 800MG/160MG) Tab 1 TAB PO BID BEGIN 09/14/17 X 7 DAYS Discharge Exam Patient reports feeling well. He denies any shortness of breath. He states his right knee pain is much improved today, currently a 5/10. He is anxious to return home. The patient denies fevers, chills, sweats, chest pain, palpitations, claudication, cough, wheezing, shortness of breath, nausea, vomiting, abdominal pain, dysuria, hematuria, urinary retention, paralysis, weakness, numbness and tingling. Constitutional: No fever, No chills, No sweats Eyes: No worsening of vision, No eye pain, No diplopia ENT: No hearing loss, No nasal symptoms, No trouble swallowing Respiratory: No cough, No wheezing, No shortness of breath Cardiovascular: No chest pain, No claudication, No palpitations Abdomen: No pain, No nausea, No vomiting Musculoskeletal: +Right knee pain improved. No muscle pain, No swelling Genitourinary - Male: No dysuria, No urinary retention, No hematuria Neurologic: No paralysis, No weakness, No numbness/tingling Integumentary: No rash, No itch, No color change General appearance: +Morbidly obese. Well-developed, well-nourished, no apparent distress Head: Normocephalic, atraumatic Eyes: Normal inspection, PERRL, EOMI ENT: Normal ENT inspection, hearing grossly normal, pharynx normal Neck: Supple, no JVD, trachea midline Respiratory/Chest: +Decreased breath sounds, difficult to assess due to body habitus. Now on room air. Lungs clear to auscultation, no respiratory distress Cardiovascular: Regular rate & rhythm, no gallop, no murmur Abdomen/GI: Normal bowel sounds, non-tender, soft Extremities/Musculoskeletal: +Ulcerations dressed on LLE. Erythema LLE. Chronic venous stasis changes bilaterally. 2+ pitting edema bilaterally. Medial aspect of right knee TTP. Crepitus noted in right knee with ROM. No calf tenderness Neurological/Psych: Alert, normal mood/affect, oriented x 3 Skin: Normal color, warm/dry, no rash Hospital Course 51 y/o male with a history of HTN, HLD, DM II w/neuropathy, anxiety, and LLE ulcerations and cellulitis who presents with worsening shortness of breath, wheezing, myoclonic jerking and sleepiness. Pt found to be in KIRSTEN on admission. KIRSTEN--resolved -Admit to med/surg -Creatinine 1.03 on 09/23, down from 1.72 -Lisinopril, Lasix, Diclofenac, Tramadol, Bactrim held due to KIRSTEN -Will continue to hold lisinopril and Lasix at discharge until he follows up with PCP as BP has been well controlled w/o. -Renal ultrasound negative for hydronephrosis -Nephrology consulted, appreciate recs: KIRSTEN due to acute inflammation from cellulitis in setting of MARCELLUS inhibitor, NSAIDs, trimethoprim and diuretics. Myoclonic jerking due to decreased renal clearance of gabapentin. D/C diclofenac. BP relatively low, can d/c lisinopril. Nephro will sign off as normal renal function returned. -UA unremarkable -Monitor I's & O's -IVF d/c'd SOB--improving, reports feeling less dyspneic -O2 by protocol. Pt back on room air -CXR grossly unremarkable -D-dimer elevated at 860 -Unable to obtain CTA chest due to KIRSTEN -Venous Dopplers negative for DVT bilaterally in lower extremities HTN, HLD--stable -Lisinopril held due to KIRSTEN, BP has been low/low normal -Resume pravastatin 40 mg PO qd DM II w/neuropathy--HgbA1c 7.5 on 06/23/17 -Home Lantus decreased to 17 units SC BID. Sugars adequately controlled here -Insulin sliding scale -Check BSGs q ac and qhs -Gabapentin decreased to 300 mg PO qd. Renal function back to normal, will return to home serjio dose Anxiety--stable -Continue Ativan prn LLE cellulitis/ulcers--ongoing -Pt on Keflex and Bactrim for over one week without improvement -D/C Keflex, Bactrim held due to KIRSTEN -Start cefepime 2 gm IV q12h and linezolid 600 mg IV q12h -Wound care nurse consulted -Wound cultures negative -Infectious disease consulted, appreciate recs: Can d/c with doxycycline alone -Will schedule wound care follow up with ID Right knee pain--ongoing -Consult orthopedics, appreciate recs: consider open MRI of knee. Continue Percocet, weight bear as tolerated -Add Percocet 5/325 mg 1 tab q6h prn pain -Continue MS Contin 100 mg PO BID. Pt takes MS Contin 130 mg PO BID at home ( verified by external med history) in addition to diclofenac 50 mg PO qd, Voltaren gel and tramadol -Diclofenac and tramadol held as above. D/C home back on home dose of MS contin DVT prophylaxis -Heparin 5000 units SC q12h Code Status -Level I, FULL RESUSCITATION STATUS PA Physician Supervision Note: I interviewed and examined the patient. Discussed with Lily Farfan PAC and agree with findings and plan as documented in the note. Any exceptions or clarifications are listed here: None We are called the patient's room as he is demanding to go home. Patient still significant lower swelling and has improved stasis dermatitis of his lower extremities but not completely resolved. Mr. Paul did speak with infectious disease and will discharge him on oral doxycycline Vital signs are temp [id number] [phone]/57 exam is regular lower extremities have 1+ edema with scaly skin changes Lower extremity cellulitis secondary to chronic venous stasis dermatitis secondary to obesity and obstructive sleep apnea patient be discharged on doxycycline with attention paid to volume elevation and salt intake Documented By: Guy Grewal Total Time Spent: Greater than 30 minutes This includes examination of the patient, discharge planning, medication reconciliation, and communication with other providers. Discharge Instructions Please refer to the electronic Patient Visit Report (Discharge Instructions) for additional information. Additional Copies To Jose Wan M.D. ([email or web address])
[2017-09-23] MEDS ORDERED: LINEZOLID 600 MG TAB PO SCH (20:00)
== END 2017-09-23 14:05 | disposition home or self-care (01) | DRG 682 ==
LOC: C.EDB 14:52 → C.4E 20:01 → ENRESERV 20:33
PROVIDERS: ADMIT Internal Medicine; ATTEND Internal Medicine
DX: N17.9 Acute kidney failure, unspecified (principal); E11.621 Type 2 diabetes mellitus with foot ulcer; J18.9 Pneumonia, unspecified organism; L03.116 Cellulitis of left lower limb; Z68.44 Body mass index [BMI] 60.0-69.9, adult; L97.519 Non-pressure chronic ulcer of other part of right foot with unspecified severity; Z79.4 Long term (current) use of insulin; Z88.8 Allergy status to other drugs, medicaments and biological substances; R09.02 Hypoxemia; E11.40 Type 2 diabetes mellitus with diabetic neuropathy, unspecified; E78.5 Hyperlipidemia, unspecified; E66.01 Morbid (severe) obesity due to excess calories

== ENCOUNTER → 2017-10-20 | Outpatient (CLI) | payer OTHER ==
[~2017-10-20] MED LIST changes: +ASPI-319 PO; -ASPI81TA21 PO; -CEPH500C2 PO; -DICL1GEL34 TOP; -FURO40TA3 PO; -LISI-725 PO; +MORP1TAB12 PO; +MORP1TAB14 PO; +OXYC-57 PO; -SULF800T23 PO; -VLT50 PO
== END | disposition home or self-care (01) ==
LOC: C.FOODA 14:01
PROVIDERS: ATTEND Orthopaedic Surgery Sports Medicine
DX: E66.9 Obesity, unspecified (principal)